=== PATIENT | female | born 1945 | race Hispanic/Latino ===

== ENCOUNTER → 2018-08-16 | Outpatient (CLI) | payer MEDICARE, OTHER | END | disposition home or self-care (01) | LOC: RAH 11:27 | PROVIDERS: ATTEND Family Medicine | DX: R91.8 Other nonspecific abnormal finding of lung field (principal); R05 Cough; I70.0 Atherosclerosis of aorta; M47.814 Spondylosis without myelopathy or radiculopathy, thoracic region | CPT/HCPCS: 71045 ==

== ENCOUNTER → 2019-04-19 | Outpatient (CLI) | payer OTHER | END | disposition home or self-care (01) | LOC: RAH 08:43 | PROVIDERS: ATTEND Internal Medicine Cardiovascular Disease | DX: Z13.6 Encounter for screening for cardiovascular disorders (principal) | CPT/HCPCS: 75571 ==

== ENCOUNTER 2021-01-16 16:28 | Inpatient (IN) | payer MEDICARE, OTHER ==
[~2021-01-16] VITALS: Ht 162.6 cm; Wt 70.9 kg
[~2021-01-16 16:28] MED LIST: ETOMIDATE 20MG VIAL IVP ONE; ROCURONIUM BROMIDE 10MG/1ML 5ML VL IV ONE
[2021-01-16 17:02] LABS: ABG BASE EXCESS 0.4 mmol/L (-2.0-3.0); ABG HCO3 23.1 mmol/L (21.0-28.0); ABG PCO2 32 mmHg (32-45)
[2021-01-16] MEDS ORDERED: ACETAMINOPHEN 325 MG TAB PO ONE (18:30)
[2021-01-16] MEDS ORDERED: AZITHROMYCIN 500MG VIAL IVPB ONE (18:30)
[2021-01-16] MEDS ORDERED: 0.9% NACL 250ML IVPB ONE (18:30)
[2021-01-16 18:47] LABS: BASOPHILS % (AUTO) 0.2 % (0.0-5.0); LYMPHOCYTES % (AUTO) 4.1 % (21.0-51.0); MEAN CORPUSCULAR HEMOGLOBIN 31.8 pg (27.0-33.0); MEAN CORPUSCULAR HGB CONC 34.3 g/dL (32.0-36.0); MEAN CORPUSCULAR VOLUME 92.7 fL (79-99); MONOCYTES % (AUTO) 5.4 % (3.0-13.0); NEUTROPHILS % (AUTO) 89.8 % (40.0-77.0); PLATELET COUNT (AUTO) 196 K/uL (130-400); RED BLOOD CELL COUNT(AUTO) 3.99 MIL/uL (4.00-5.50); WHITE BLOOD COUNT (AUTO) 6.3 K/uL (4.8-10.8)
[2021-01-16 18:56] LABS: CREATININE 1.1 mg/dL (0.5-1.5); POTASSIUM 4.9 mmol/L (3.5-5.1)
[2021-01-16 19:07] LABS: ALBUMIN 3.2 g/dL (3.5-5.0); BILIRUBIN,TOTAL 0.5 mg/dL (0.2-1.0); TOTAL PROTEIN, SERUM 7.5 g/dL (6.0-8.3)
[2021-01-16 19:09] LABS: B-TYPE NATRIURETIC PEPTIDE 27 pg/mL (0-100)
[2021-01-16] MEDS ORDERED: ALBUTEROL INHALER 90MCG/INH IH PRN (19:30)
[2021-01-16] MEDS ORDERED: ACETAMINOPHEN 650 MG SUPPOSITORY RC PRN (19:30)
[2021-01-16] MEDS ORDERED: DOXYCYCLINE 100MG+NS 250ML IV SCH (19:30)
[2021-01-16] MEDS ORDERED: CLONIDINE HCL 0.1 MG TABLET PO PRN (19:30)
[2021-01-16] MEDS: DEXAMETHASONE SOD PHOSPHATE 4 MG/ML 1ML VIAL IVP SCH (19:30)
[2021-01-16] MEDS ORDERED: ACETAMINOPHEN 325 MG TAB PO PRN (19:30)
[2021-01-16] MEDS ORDERED: ONDANSETRON 4MG INJ IVP PRN (19:30)
[2021-01-16] MEDS ORDERED: CEFTRIAXONE 1G VIAL IVP SCH (19:30)
[2021-01-16] MEDS ORDERED: ERGOCALCIFEROL (VITAMIN D2) 50,000 UNIT CAPSULE PO ONE (19:30)
[2021-01-16] MEDS ORDERED: AZITHROMYCIN 500MG+NS 250ML 250 ML IV ONE (19:36)
[2021-01-16] MEDS ORDERED: ERGOCALCIFEROL (VITAMIN D2) 50,000 UNIT CAPSULE ONE (21:27)
[2021-01-16] MEDS: ACETYLCYSTEINE 600 MG CAPSULE PO SCH (21:43)
[2021-01-17] VITALS: BP 131/64
[2021-01-17 04:00] VITALS: BP 105/55
[2021-01-17 04:18] LABS: LYMPHOCYTES % (AUTO) 7.6 % (21.0-51.0); MEAN CORPUSCULAR HEMOGLOBIN 31.9 pg (27.0-33.0); MEAN CORPUSCULAR VOLUME 93.8 fL (79-99); MONOCYTES % (AUTO) 4.3 % (3.0-13.0); NEUTROPHILS % (AUTO) 87.6 % (40.0-77.0); PLATELET COUNT (AUTO) 181 K/uL (130-400); RED BLOOD CELL COUNT(AUTO) 3.73 MIL/uL (4.00-5.50)
[2021-01-17 04:35] LABS: B-TYPE NATRIURETIC PEPTIDE 30 pg/mL (0-100)
[2021-01-17 04:41] LABS: CREATININE 0.9 mg/dL (0.5-1.5); POTASSIUM 4.6 mmol/L (3.5-5.1)
[2021-01-17 04:52] LABS: ALBUMIN 2.9 g/dL (3.5-5.0); BILIRUBIN,TOTAL 0.4 mg/dL (0.2-1.0); CRP QUANTITATIVE 35.9 mg/L (0.00-9.0)
[2021-01-17] MEDS ORDERED: PHARMACY COMMUNICATION**REMDESIVIR MISC SCH (07:30)
[2021-01-17 07:33] VITALS: BP 100/55
[2021-01-17] MEDS ORDERED: DOXYCYCLINE 100MG+NS 250ML IV SCH (08:00)
[2021-01-17] MEDS: DOXYCYCLINE 100MG+NS 250ML 250 ML IV SCH ×2 (08:25→19:42)
[2021-01-17] MEDS ORDERED: IOHEXOL-350 75 ML VIAL IV ONE (09:05)
[2021-01-17 09:20] LABS: APPEARANCE,URINE Clear (CLEAR); BILIRUBIN,URINE Negative (NEGATIVE); COLOR,URINE Dark Yellow (YELLOW); GLUCOSE, URINE (UA) Negative (NEGATIVE); KETONES,URINE Negative (NEGATIVE); LEUKOCYTE ESTERASE ,URINE Trace (NEGATIVE); NITRATE,URINE Negative (NEGATIVE); OCCULT BLOOD,URINE Negative (NEGATIVE); PROTEIN,URINE POS 1+ mg/dL (NEGATIVE)
[2021-01-17 09:25] LABS: RBC,URINE 0-1 /HPF (0-1)
[2021-01-17 09:26] LABS: BACTERIA,URINE Few /HPF (None Seen); MUCUS,URINE Rare LPF (None Seen); SQUAMOUS EPITHELIAL CELL,UR Rare /HPF (0-2)
[2021-01-17] MEDS ORDERED: COMPOUND IV REFRIGERATED 1 EACH IVSOLN MISC PRN (10:00)
[2021-01-17] MEDS ORDERED: REMDESIVIR (EUA) 520 200 MG in 0.9% NACL 250ML 250 ML IV SCH (10:00)
[2021-01-17] MEDS: ENOXAPARIN SODIUM 40 MG/0.4 ML SYRINGE SQ SCH (10:28)
[2021-01-17] MEDS: PANTOPRAZOLE 40 MG TAB DR PO SCH (10:29)
[2021-01-17] MEDS: ASPIRIN 81MG CHEW TAB PO SCH (10:29)
[2021-01-17] MEDS: ACETYLCYSTEINE 600 MG CAPSULE PO SCH ×2 (10:29→19:42)
[2021-01-17] MEDS: ZINC SULFATE 220 CAPSULE PO SCH (10:29)
[2021-01-17] MEDS: ASCORBIC ACID 500 MG TAB PO SCH (10:29)
[2021-01-17] MEDS: CEFTRIAXONE 1G VIAL IVP SCH ×2 (10:29→19:42)
[2021-01-17 11:32] VITALS: BP 130/71
[2021-01-17] MEDS ORDERED: LISI10TA24 PO (14:35)
[2021-01-17] MEDS ORDERED: LEVO25CA4 PO (14:35)
[2021-01-17] MEDS ORDERED: LIOT5TAB11 PO (14:35)
[2021-01-17 15:15] VITALS: BP 120/60
[2021-01-17] MEDS ORDERED: BENZONATATE 100 MG CAPSULE PO PRN (16:30)
[2021-01-17] MEDS: DEXAMETHASONE SOD PHOSPHATE 4 MG/ML 1ML VIAL IVP SCH (19:42)
[2021-01-17 19:55] VITALS: BP 122/59
[2021-01-18] VITALS (7 sets, daily range): BP systolic 101–122; BP diastolic 42–58
[2021-01-18] MEDS: REMDESIVIR LABS MISC SCH (05:08)
[2021-01-18 05:14] LABS: HEMATOCRIT 35.3 % (36-48); MEAN CORPUSCULAR HEMOGLOBIN 31.3 pg (27.0-33.0); MEAN CORPUSCULAR HGB CONC 33.7 g/dL (32.0-36.0); MEAN CORPUSCULAR VOLUME 92.9 fL (79-99); MONOCYTES % (AUTO) 3.3 % (3.0-13.0); NEUTROPHILS % (AUTO) 92.3 % (40.0-77.0); PLATELET COUNT (AUTO) 200 K/uL (130-400); RED CELL DISTRIBUTION WIDTH 12.1 % (11.0-15.5); WHITE BLOOD COUNT (AUTO) 8.5 K/uL (4.8-10.8)
[2021-01-18 05:36] LABS: ALBUMIN 2.7 g/dL (3.5-5.0); BILIRUBIN,TOTAL 0.4 mg/dL (0.2-1.0); CRP QUANTITATIVE 31.1 mg/L (0.00-9.0); POTASSIUM 4.5 mmol/L (3.5-5.1); TOTAL PROTEIN, SERUM 6.7 g/dL (6.0-8.3)
[2021-01-18] MEDS: ASCORBIC ACID 500 MG TAB PO SCH (09:06)
[2021-01-18] MEDS: CEFTRIAXONE 1G VIAL IVP SCH ×2 (09:06→20:18)
[2021-01-18] MEDS: ASPIRIN 81MG CHEW TAB PO SCH (09:06)
[2021-01-18] MEDS: ZINC SULFATE 220 CAPSULE PO SCH (09:06)
[2021-01-18] MEDS: PANTOPRAZOLE 40 MG TAB DR PO SCH (09:06)
[2021-01-18] MEDS: ACETYLCYSTEINE 600 MG CAPSULE PO SCH ×2 (09:06→20:18)
[2021-01-18] MEDS: DOXYCYCLINE 100MG+NS 250ML 250 ML IV SCH ×2 (09:06→20:18)
[2021-01-18] MEDS: ENOXAPARIN SODIUM 40 MG/0.4 ML SYRINGE SQ SCH (09:07)
[2021-01-18] MEDS ORDERED: REMDESIVIR (EUA) 520 100 MG in 0.9% NACL 250ML 250 ML IV SCH (13:00)
[2021-01-18] MEDS ORDERED: [UNRECOGNIZED DRUG - OTHER] MISC SCH (16:00)
[2021-01-18] MEDS ORDERED: TOCILIZUMAB 200MG VIAL 600 MG in 0.9%NACL 100ML 100 ML IV SCH (16:30)
[2021-01-18] MEDS: DEXAMETHASONE SOD PHOSPHATE 4 MG/ML 1ML VIAL IVP SCH (17:47)
[2021-01-19 03:59] VITALS: BP 110/43
[2021-01-19 04:14] LABS: ABG BASE EXCESS -3.2 mmol/L (-2.0-3.0); ABG HCO3 20.9 mmol/L (21.0-28.0); ABG OXYGEN SATURATION 93.6 % (95.0-99.0); ABG PCO2 35 mmHg (32-45)
[2021-01-19 05:31] LABS: BASOPHILS % (AUTO) 0.1 % (0.0-5.0); HEMATOCRIT 35.9 % (36-48); LYMPHOCYTES % (AUTO) 2.9 % (21.0-51.0); MEAN CORPUSCULAR HGB CONC 33.7 g/dL (32.0-36.0); MEAN CORPUSCULAR VOLUME 92.1 fL (79-99); NEUTROPHILS % (AUTO) 94.4 % (40.0-77.0); PLATELET COUNT (AUTO) 241 K/uL (130-400); RED CELL DISTRIBUTION WIDTH 12.1 % (11.0-15.5); WHITE BLOOD COUNT (AUTO) 12.7 K/uL (4.8-10.8)
[2021-01-19] MEDS: REMDESIVIR LABS MISC SCH (06:00)
[2021-01-19 06:02] LABS: ALBUMIN 2.5 g/dL (3.5-5.0); BILIRUBIN,TOTAL 0.4 mg/dL (0.2-1.0); CREATININE 0.9 mg/dL (0.5-1.5); CRP QUANTITATIVE 45.6 mg/L (0.00-9.0); POTASSIUM 4.4 mmol/L (3.5-5.1); TOTAL PROTEIN, SERUM 6.8 g/dL (6.0-8.3)
[2021-01-19 07:00] VITALS: BP 115/39
[2021-01-19] MEDS: ZINC SULFATE 220 CAPSULE PO SCH (09:52)
[2021-01-19] MEDS: ASCORBIC ACID 500 MG TAB PO SCH (09:53)
[2021-01-19] MEDS: ACETYLCYSTEINE 600 MG CAPSULE PO SCH ×2 (09:53→20:00)
[2021-01-19] MEDS: ASPIRIN 81MG CHEW TAB PO SCH (09:53)
[2021-01-19] MEDS: PANTOPRAZOLE 40 MG TAB DR PO SCH (09:53)
[2021-01-19] MEDS: ENOXAPARIN SODIUM 40 MG/0.4 ML SYRINGE SQ SCH (09:54)
[2021-01-19] MEDS: DOXYCYCLINE 100MG+NS 250ML 250 ML IV SCH ×2 (09:54→19:58)
[2021-01-19] MEDS: CEFTRIAXONE 1G VIAL IVP SCH ×2 (09:56→19:58)
[2021-01-19 11:00] VITALS: BP 125/65
[2021-01-19] MEDS: SOLU-MEDROL 125MG VIAL IVP SCH ×2 (11:18→18:31)
[2021-01-19 16:00] VITALS: BP 119/55
[2021-01-19 19:52] VITALS: BP 122/53
[2021-01-19] MEDS ORDERED: 0.9% NACL 250ML 250 ML ONE (19:54)
[2021-01-19 23:20] VITALS: BP 122/53
[2021-01-20] MEDS: SOLU-MEDROL 125MG VIAL IVP SCH ×3 (02:16→18:01)
[2021-01-20 04:04] VITALS: BP 125/61
[2021-01-20 04:41] LABS: HEMATOCRIT 38.3 % (36-48); MEAN CORPUSCULAR HEMOGLOBIN 31.6 pg (27.0-33.0); MEAN CORPUSCULAR HGB CONC 34.2 g/dL (32.0-36.0); MEAN CORPUSCULAR VOLUME 92.3 fL (79-99); RED BLOOD CELL COUNT(AUTO) 4.15 MIL/uL (4.00-5.50); RED CELL DISTRIBUTION WIDTH 12.1 % (11.0-15.5); WHITE BLOOD COUNT (AUTO) 14.1 K/uL (4.8-10.8)
[2021-01-20 05:00] LABS: ALBUMIN 2.6 g/dL (3.5-5.0); BILIRUBIN,TOTAL 0.4 mg/dL (0.2-1.0); CREATININE 0.9 mg/dL (0.5-1.5); CRP QUANTITATIVE 25.1 mg/L (0.00-9.0); TOTAL PROTEIN, SERUM 6.9 g/dL (6.0-8.3)
[2021-01-20 07:00] VITALS: BP 127/45
[2021-01-20] MEDS: ENOXAPARIN SODIUM 40 MG/0.4 ML SYRINGE SQ SCH (08:13)
[2021-01-20] MEDS: ACETYLCYSTEINE 600 MG CAPSULE PO SCH ×2 (08:13→20:44)
[2021-01-20] MEDS: ASCORBIC ACID 500 MG TAB PO SCH (08:13)
[2021-01-20] MEDS: ZINC SULFATE 220 CAPSULE PO SCH (08:13)
[2021-01-20] MEDS: ASPIRIN 81MG CHEW TAB PO SCH (08:14)
[2021-01-20] MEDS: DOXYCYCLINE 100MG+NS 250ML 250 ML IV SCH ×2 (08:14→20:44)
[2021-01-20] MEDS: PANTOPRAZOLE 40 MG TAB DR PO SCH (08:14)
[2021-01-20] MEDS: CEFTRIAXONE 1G VIAL IVP SCH ×2 (08:14→20:44)
[2021-01-20] MEDS ORDERED: DIAZEPAM 5 MG TABLET PO PRN (10:30)
[2021-01-20 11:00] VITALS: BP 130/65
[2021-01-20] MEDS: THIAMINE HCL 100 MG TABLET PO SCH (13:10)
[2021-01-20] MEDS: ALBUTEROL INHALER 90MCG/INH IH SCH ×4 (13:11→23:43)
[2021-01-20 15:00] VITALS: BP 131/51
[2021-01-20 19:43] VITALS: BP 133/54
[2021-01-20 23:11] VITALS: BP 126/48
[2021-01-21] MEDS: SOLU-MEDROL 125MG VIAL IVP SCH ×2 (02:44→09:48)
[2021-01-21 03:16] VITALS: BP 122/57
[2021-01-21] MEDS: ALBUTEROL INHALER 90MCG/INH IH SCH ×6 (03:46→23:30)
[2021-01-21 04:34] LABS: HEMATOCRIT 37.4 % (36-48); MEAN CORPUSCULAR HEMOGLOBIN 31.5 pg (27.0-33.0); MEAN CORPUSCULAR HGB CONC 34.2 g/dL (32.0-36.0); MEAN CORPUSCULAR VOLUME 92.1 fL (79-99); RED BLOOD CELL COUNT(AUTO) 4.06 MIL/uL (4.00-5.50); RED CELL DISTRIBUTION WIDTH 11.9 % (11.0-15.5); WHITE BLOOD COUNT (AUTO) 13.8 K/uL (4.8-10.8)
[2021-01-21 04:55] LABS: CREATININE 0.9 mg/dL (0.5-1.5); CRP QUANTITATIVE 9.6 mg/L (0.00-9.0); POTASSIUM 4.1 mmol/L (3.5-5.1)
[2021-01-21 07:44] LABS: ABG BASE EXCESS -4.6 mmol/L (-2.0-3.0); ABG HCO3 18.9 mmol/L (21.0-28.0); ABG OXYGEN SATURATION 88.2 % (95.0-99.0); ABG PCO2 30 mmHg (32-45)
[2021-01-21] MEDS ORDERED: ENOXAPARIN SODIUM 0.5 MG/KG EACH SQ SCH (09:00)
[2021-01-21] MEDS: ASPIRIN 81MG CHEW TAB PO SCH (09:23)
[2021-01-21] MEDS: THIAMINE HCL 100 MG TABLET PO SCH (09:23)
[2021-01-21] MEDS: ZINC SULFATE 220 CAPSULE PO SCH (09:23)
[2021-01-21] MEDS: ACETYLCYSTEINE 600 MG CAPSULE PO SCH ×2 (09:23→20:31)
[2021-01-21] MEDS: ASCORBIC ACID 500 MG TAB PO SCH (09:23)
[2021-01-21] MEDS: PANTOPRAZOLE 40 MG TAB DR PO SCH (09:23)
[2021-01-21] MEDS: DOXYCYCLINE 100MG+NS 250ML 250 ML IV SCH ×2 (09:24→20:32)
[2021-01-21] MEDS: CEFTRIAXONE 1G VIAL IVP SCH ×2 (09:24→20:31)
[2021-01-21] MEDS: ENOXAPARIN SODIUM 40 MG/0.4 ML SYRINGE SQ SCH ×2 (09:25→20:31)
[2021-01-21 10:37] VITALS: BP 130/60
[2021-01-21 12:00] VITALS: BP 139/63
[2021-01-21 16:00] VITALS: BP 124/59
[2021-01-21] MEDS ORDERED: SOLU-MEDROL 125MG VIAL IVP SCH (21:00)
[2021-01-21 21:05] VITALS: BP 113/55
[2021-01-22 00:06] VITALS: BP 123/58
[2021-01-22] MEDS: ALBUTEROL INHALER 90MCG/INH IH SCH ×6 (03:30→23:30)
[2021-01-22 04:12] VITALS: BP 119/76
[2021-01-22 05:42] LABS: HEMATOCRIT 36.8 % (36-48); MEAN CORPUSCULAR HEMOGLOBIN 31.3 pg (27.0-33.0); MEAN CORPUSCULAR HGB CONC 33.7 g/dL (32.0-36.0); MEAN CORPUSCULAR VOLUME 92.9 fL (79-99); NUCLEATED RED BLOOD CELLS 0.1 % (0.0-0.19); RED BLOOD CELL COUNT(AUTO) 3.96 MIL/uL (4.00-5.50); RED CELL DISTRIBUTION WIDTH 12.1 % (11.0-15.5); WHITE BLOOD COUNT (AUTO) 13.7 K/uL (4.8-10.8)
[2021-01-22 06:02] LABS: ALANINE AMINOTRANSFERASE 66 U/L (12-78); ALBUMIN 2.5 g/dL (3.5-5.0); ASPARTATE AMINOTRANSFERASE 47 U/L (10-37); BILIRUBIN,TOTAL 0.4 mg/dL (0.2-1.0); CARBON DIOXIDE 22 mmol/L (21-32); CHLORIDE 107 mmol/L (101-111); CREATININE 0.9 mg/dL (0.5-1.5); GLOMERULAR FILTR. RATE CALC 65 mL/min (>60); GLUCOSE,RANDOM 111 mg/dL (70-105); POTASSIUM 4.6 mmol/L (3.5-5.1); SODIUM SERUM 138 mmol/L (136-145); TOTAL PROTEIN, SERUM 6.1 g/dL (6.0-8.3); UREA NITROGEN, BLOOD 39 mg/dL (7-18)
[2021-01-22 06:03] LABS: CRP QUANTITATIVE < 2.00 mg/L (0.00-9.0)
[2021-01-22 08:00] VITALS: BP 134/58
[2021-01-22] MEDS: DOXYCYCLINE 100MG+NS 250ML 250 ML IV SCH ×2 (09:13→19:58)
[2021-01-22] MEDS: ENOXAPARIN SODIUM 40 MG/0.4 ML SYRINGE SQ SCH ×2 (09:13→20:04)
[2021-01-22] MEDS: SOLU-MEDROL 125MG VIAL IVP SCH ×2 (09:18→20:01)
[2021-01-22] MEDS: ACETYLCYSTEINE 600 MG CAPSULE PO SCH ×2 (09:19→20:02)
[2021-01-22] MEDS: ASPIRIN 81MG CHEW TAB PO SCH (09:19)
[2021-01-22] MEDS: ZINC SULFATE 220 CAPSULE PO SCH (09:19)
[2021-01-22] MEDS: ASCORBIC ACID 500 MG TAB PO SCH (09:19)
[2021-01-22] MEDS: CEFTRIAXONE 1G VIAL IVP SCH ×2 (09:19→19:58)
[2021-01-22] MEDS: THIAMINE HCL 100 MG TABLET PO SCH (09:20)
[2021-01-22] MEDS: PANTOPRAZOLE 40 MG TAB DR PO SCH (09:20)
[2021-01-22 16:00] VITALS: BP 120/56
[2021-01-22] MEDS: ZINC OXIDE OINT 60GM TUBE TP SCH (20:03)
[2021-01-22 20:25] VITALS: BP 129/68
[2021-01-23] VITALS (7 sets, daily range): BP systolic 105–125; BP diastolic 42–67
[2021-01-23] MEDS: ALBUTEROL INHALER 90MCG/INH IH SCH ×3 (04:06→23:42)
[2021-01-23 04:44] LABS: ABG BASE EXCESS -1.2 mmol/L (-2.0-3.0); ABG HCO3 22.2 mmol/L (21.0-28.0); ABG OXYGEN SATURATION 87.1 % (95.0-99.0); ABG PCO2 33 mmHg (32-45)
[2021-01-23 04:55] LABS: MEAN CORPUSCULAR HEMOGLOBIN 30.9 pg (27.0-33.0); MEAN CORPUSCULAR HGB CONC 34.5 g/dL (32.0-36.0); MEAN CORPUSCULAR VOLUME 89.6 fL (79-99); NUCLEATED RED BLOOD CELLS 0.2 % (0.0-0.19); RED BLOOD CELL COUNT(AUTO) 4.24 MIL/uL (4.00-5.50); RED CELL DISTRIBUTION WIDTH 11.9 % (11.0-15.5); WHITE BLOOD COUNT (AUTO) 14.1 K/uL (4.8-10.8)
[2021-01-23 05:08] LABS: CARBON DIOXIDE 24 mmol/L (21-32); CHLORIDE 105 mmol/L (101-111); CREATININE 0.9 mg/dL (0.5-1.5); GLOMERULAR FILTR. RATE CALC 65 mL/min (>60); GLUCOSE,RANDOM 135 mg/dL (70-105); POTASSIUM 4.5 mmol/L (3.5-5.1); SODIUM SERUM 136 mmol/L (136-145); UREA NITROGEN, BLOOD 41 mg/dL (7-18)
[2021-01-23 05:46] LABS: CRP QUANTITATIVE < 2.00 mg/L (0.00-9.0)
[2021-01-23] MEDS: ASCORBIC ACID 500 MG TAB PO SCH (09:00)
[2021-01-23] MEDS: SOLU-MEDROL 125MG VIAL IVP SCH ×2 (10:18→20:30)
[2021-01-23] MEDS: FLUCONAZOLE 400 MG/NS 200 ML 200 ML IV SCH (10:19)
[2021-01-23] MEDS: ZINC SULFATE 220 CAPSULE PO SCH (10:27)
[2021-01-23] MEDS: THIAMINE HCL 100 MG TABLET PO SCH ×2 (10:27→20:31)
[2021-01-23] MEDS: PANTOPRAZOLE 40 MG TAB DR PO SCH (10:33)
[2021-01-23] MEDS: ACETYLCYSTEINE 600 MG CAPSULE PO SCH ×2 (10:35→20:30)
[2021-01-23] MEDS: ASPIRIN 81MG CHEW TAB PO SCH (10:35)
[2021-01-23] MEDS ORDERED: PHARMACY COMMUNICATION MISC SCH (12:00)
[2021-01-23] MEDS: PHARMACY COMMUNICATION MISC SCH (19:15)
[2021-01-23] MEDS: ZINC OXIDE OINT 60GM TUBE TP SCH (20:29)
[2021-01-23] MEDS: CEFTRIAXONE 1G VIAL IVP SCH (20:30)
[2021-01-23] MEDS: DRONABINOL 2.5 MG CAP PO SCH (20:30)
[2021-01-23] MEDS: DOXYCYCLINE 100MG+NS 250ML 250 ML IV SCH (20:30)
[2021-01-23] MEDS: ENOXAPARIN SODIUM 40 MG/0.4 ML SYRINGE SQ SCH (20:32)
[2021-01-23] MEDS ORDERED: BENZONATATE 100 MG CAPSULE PO ONE (23:46)
[2021-01-24] VITALS (7 sets, daily range): BP systolic 117–139; BP diastolic 54–69
[2021-01-24 02:15] LABS: ABG BASE EXCESS -2.9 mmol/L (-2.0-3.0); ABG HCO3 20.7 mmol/L (21.0-28.0); ABG PCO2 33 mmHg (32-45)
[2021-01-24] MEDS: ALBUTEROL INHALER 90MCG/INH IH SCH ×6 (02:34→23:14)
[2021-01-24] MEDS ORDERED: SODIUM BICARB 50MEQ 50ML VIAL 50 ML ONE ×2 (02:54→02:58)
[2021-01-24] MEDS ORDERED: SODIUM BICARB 8.4% 50ML SYRINGE IVP ONE (03:00)
[2021-01-24] MEDS: PHARMACY COMMUNICATION MISC SCH ×3 (03:03→20:00)
[2021-01-24] MEDS: DOXYCYCLINE 100MG+NS 250ML 250 ML IV SCH (08:42)
[2021-01-24] MEDS: BENZONATATE 100 MG CAPSULE PO SCH ×4 (08:42→23:16)
[2021-01-24] MEDS: CEFTRIAXONE 1G VIAL IVP SCH (08:42)
[2021-01-24] MEDS: FLUCONAZOLE 400 MG/NS 200 ML 200 ML IV SCH (08:49)
[2021-01-24] MEDS: ACETYLCYSTEINE 600 MG CAPSULE PO SCH ×2 (08:50→21:33)
[2021-01-24] MEDS: SOLU-MEDROL 125MG VIAL IVP SCH ×4 (08:50→21:33)
[2021-01-24] MEDS: PANTOPRAZOLE 40 MG TAB DR PO SCH (08:50)
[2021-01-24] MEDS: ASPIRIN 81MG CHEW TAB PO SCH (08:50)
[2021-01-24] MEDS: DRONABINOL 2.5 MG CAP PO SCH ×2 (08:50→21:33)
[2021-01-24] MEDS: ENOXAPARIN SODIUM 40 MG/0.4 ML SYRINGE SQ SCH ×2 (08:51→21:34)
[2021-01-24] MEDS: THIAMINE HCL 100 MG TABLET PO SCH ×2 (08:51→21:33)
[2021-01-24] MEDS: ZINC SULFATE 220 CAPSULE PO SCH (08:51)
[2021-01-24] MEDS: ASCORBIC ACID 500 MG TAB PO SCH (08:51)
[2021-01-24] MEDS: ZINC OXIDE OINT 60GM TUBE TP SCH ×2 (08:52→21:34)
[2021-01-24] MEDS: ERGOCALCIFEROL (VITAMIN D2) 50,000 UNIT CAPSULE PO SCH (08:55)
[2021-01-24] MEDS ORDERED: COMPOUND IV REFRIGERATED 1 EACH IVSOLN MISC PRN (15:00)
[2021-01-24 15:37] LABS: HEMATOCRIT 38.8 % (36-48); MEAN CORPUSCULAR HEMOGLOBIN 32.3 pg (27.0-33.0); MEAN CORPUSCULAR HGB CONC 34.5 g/dL (32.0-36.0); MEAN CORPUSCULAR VOLUME 93.5 fL (79-99); RED BLOOD CELL COUNT(AUTO) 4.15 MIL/uL (4.00-5.50); RED CELL DISTRIBUTION WIDTH 12.3 % (11.0-15.5); WHITE BLOOD COUNT (AUTO) 14.5 K/uL (4.8-10.8)
[2021-01-24 15:56] LABS: ALBUMIN 2.6 g/dL (3.5-5.0); BILIRUBIN,TOTAL 0.3 mg/dL (0.2-1.0); CREATININE 0.8 mg/dL (0.5-1.5); POTASSIUM 4.6 mmol/L (3.5-5.1); TOTAL PROTEIN, SERUM 6.1 g/dL (6.0-8.3)
[2021-01-24] MEDS ORDERED: VANCOMYCIN 1G VIAL IVPB SCH (16:00)
[2021-01-24] MEDS ORDERED: 0.9% NACL 250ML IVPB SCH (16:00)
[2021-01-24] MEDS ORDERED: DIAZEPAM 5 MG TABLET PO PRN (16:00)
[2021-01-24] MEDS ORDERED: 0.9% NACL 250ML 250 ML IV SCH (16:00)
[2021-01-24] MEDS ORDERED: ZOSYN 3.375GM+NS 50ML 3.38 GM in 0.9%NACL 50ML 50 ML IV SCH (16:00)
[2021-01-24] MEDS ORDERED: VANCOMYCIN PROTOCOL PER PHARMACY IV SCH (16:00)
[2021-01-24] MEDS ORDERED: VANCOMYCIN KIT 1 GM/250 ML IV.KIT IV SCH (16:00)
[2021-01-24] MEDS: ASCORBIC ACID IV SCH (18:45)
[2021-01-24] MEDS: [UNRECOGNIZED DRUG - OTHER] IV SCH (18:45)
[2021-01-24] MEDS ORDERED: 0.9%NACL 50ML 50 ML IV ONE (20:41)
[2021-01-24] MEDS: ZOSYN 3.375GM+NS 50ML 50 ML IV SCH (20:43)
[2021-01-24] MEDS: DIAZEPAM 5 MG TABLET PO SCH (21:33)
[2021-01-25] VITALS (24 sets, daily range): BP systolic 119–154; BP diastolic 46–94
[2021-01-25] MEDS: ASCORBIC ACID IV SCH ×4 (00:47→18:25)
[2021-01-25] MEDS: [UNRECOGNIZED DRUG - OTHER] IV SCH ×4 (00:47→18:25)
[2021-01-25] MEDS: ALBUTEROL INHALER 90MCG/INH IH SCH ×6 (03:03→23:30)
[2021-01-25] MEDS: PHARMACY COMMUNICATION MISC SCH ×2 (03:03→20:00)
[2021-01-25] MEDS: DIAZEPAM 5 MG TABLET PO SCH ×5 (04:00→21:23)
[2021-01-25] MEDS ORDERED: 0.9%NACL 50ML 50 ML IV ONE ×2 (04:03→21:08)
[2021-01-25] MEDS: SOLU-MEDROL 125MG VIAL IVP SCH ×4 (04:10→21:23)
[2021-01-25 04:35] LABS: BASOPHILS % (AUTO) 0.1 % (0.0-5.0); HEMATOCRIT 37.5 % (36-48); LYMPHOCYTES % (AUTO) 2.6 % (21.0-51.0); MEAN CORPUSCULAR HEMOGLOBIN 31.1 pg (27.0-33.0); MEAN CORPUSCULAR HGB CONC 33.9 g/dL (32.0-36.0); MEAN CORPUSCULAR VOLUME 91.7 fL (79-99); MONOCYTES % (AUTO) 0.3 % (3.0-13.0); NEUTROPHILS % (AUTO) 94.7 % (40.0-77.0); PLATELET COUNT (AUTO) 340 K/uL (130-400); RED BLOOD CELL COUNT(AUTO) 4.09 MIL/uL (4.00-5.50); WHITE BLOOD COUNT (AUTO) 15.5 K/uL (4.8-10.8)
[2021-01-25 05:00] LABS: CREATININE 0.8 mg/dL (0.5-1.5); POTASSIUM 4.7 mmol/L (3.5-5.1)
[2021-01-25] MEDS: ZOSYN 3.375GM+NS 50ML 50 ML IV SCH ×3 (05:44→21:12)
[2021-01-25] MEDS: 0.9%NACL 100ML 100 ML IV SCH ×2 (09:42→21:14)
[2021-01-25] MEDS: VANCOMYCIN 500MG+NS 100ML IVPB IV SCH ×2 (09:42→21:14)
[2021-01-25] MEDS: FLUCONAZOLE 400 MG/NS 200 ML 200 ML IV SCH (09:42)
[2021-01-25] MEDS: BENZONATATE 100 MG CAPSULE PO SCH ×2 (09:42→15:35)
[2021-01-25] MEDS: ASCORBIC ACID 500 MG TAB PO SCH (09:43)
[2021-01-25] MEDS: PANTOPRAZOLE 40 MG TAB DR PO SCH (09:43)
[2021-01-25] MEDS: ZINC SULFATE 220 CAPSULE PO SCH (09:43)
[2021-01-25] MEDS: ASPIRIN 81MG CHEW TAB PO SCH (09:43)
[2021-01-25] MEDS: DRONABINOL 2.5 MG CAP PO SCH ×2 (09:43→21:13)
[2021-01-25] MEDS: THIAMINE HCL 100 MG TABLET PO SCH ×2 (09:43→21:13)
[2021-01-25] MEDS: ENOXAPARIN SODIUM 40 MG/0.4 ML SYRINGE SQ SCH ×2 (09:44→21:12)
[2021-01-25] MEDS: ZINC OXIDE OINT 60GM TUBE TP SCH ×2 (09:44→21:12)
[2021-01-25] MEDS: ACETYLCYSTEINE 600 MG CAPSULE PO SCH ×2 (09:44→21:13)
[2021-01-26] VITALS (16 sets, daily range): BP systolic 119–148; BP diastolic 42–80
[2021-01-26] MEDS: BENZONATATE 100 MG CAPSULE PO SCH ×4 (00:12→23:39)
[2021-01-26] MEDS: [UNRECOGNIZED DRUG - OTHER] IV SCH ×5 (00:13→23:42)
[2021-01-26] MEDS: ASCORBIC ACID IV SCH ×5 (00:13→23:42)
[2021-01-26] MEDS: ALBUTEROL INHALER 90MCG/INH IH SCH ×5 (03:30→18:19)
[2021-01-26] MEDS: PHARMACY COMMUNICATION MISC SCH ×3 (04:00→20:00)
[2021-01-26] MEDS: DIAZEPAM 5 MG TABLET PO SCH ×4 (04:00→20:50)
[2021-01-26] MEDS ORDERED: 0.9%NACL 50ML 50 ML IV ONE (05:24)
[2021-01-26] MEDS: ZOSYN 3.375GM+NS 50ML 50 ML IV SCH ×3 (05:27→20:49)
[2021-01-26] MEDS: SOLU-MEDROL 125MG VIAL IVP SCH ×3 (05:27→17:36)
[2021-01-26 05:45] LABS: ALBUMIN 2.7 g/dL (3.5-5.0); BILIRUBIN,TOTAL 0.5 mg/dL (0.2-1.0); CREATININE 0.8 mg/dL (0.5-1.5); TOTAL PROTEIN, SERUM 6.3 g/dL (6.0-8.3)
[2021-01-26 06:56] LABS: HEMATOCRIT 39.9 % (36-48); MEAN CORPUSCULAR HEMOGLOBIN 31.2 pg (27.0-33.0); MEAN CORPUSCULAR HGB CONC 33.6 g/dL (32.0-36.0); MEAN CORPUSCULAR VOLUME 92.8 fL (79-99); RED BLOOD CELL COUNT(AUTO) 4.3 MIL/uL (4.00-5.50); RED CELL DISTRIBUTION WIDTH 12.3 % (11.0-15.5); WHITE BLOOD COUNT (AUTO) 20.2 K/uL (4.8-10.8)
[2021-01-26] MEDS: ACETYLCYSTEINE 600 MG CAPSULE PO SCH ×2 (07:55→20:49)
[2021-01-26] MEDS: ASCORBIC ACID 500 MG TAB PO SCH ×2 (07:57→08:53)
[2021-01-26] MEDS: VANCOMYCIN 500MG+NS 100ML IVPB IV SCH ×2 (08:49→20:49)
[2021-01-26] MEDS: ENOXAPARIN SODIUM 40 MG/0.4 ML SYRINGE SQ SCH ×2 (08:53→20:50)
[2021-01-26] MEDS: PANTOPRAZOLE 40 MG TAB DR PO SCH (08:54)
[2021-01-26] MEDS: THIAMINE HCL 100 MG TABLET PO SCH ×2 (08:54→20:49)
[2021-01-26] MEDS: FLUCONAZOLE 400 MG/NS 200 ML 200 ML IV SCH (08:55)
[2021-01-26] MEDS: DRONABINOL 2.5 MG CAP PO SCH ×2 (08:55→20:49)
[2021-01-26] MEDS: ASPIRIN 81MG CHEW TAB PO SCH (08:55)
[2021-01-26] MEDS: ZINC SULFATE 220 CAPSULE PO SCH (08:55)
[2021-01-26] MEDS: ZINC OXIDE OINT 60GM TUBE TP SCH ×2 (08:55→20:50)
[2021-01-26] MEDS: LIOTHYRONINE SODIUM 5 MCG PO SCH ×2 (10:22→21:00)
[2021-01-26] MEDS: LEVOTHYROXINE 25 MCG TABLET PO SCH (11:04)
[2021-01-26] MEDS ORDERED: COMPOUND IV REFRIGERATED 1 EACH IVSOLN MISC PRN (12:30)
[2021-01-26] MEDS ORDERED: VANCOMYCIN 1.25GM/NS 250ML IVPB SCH ×2 (14:00)
[2021-01-26 15:38] LABS: INR 1.11 (0.85-1.15)
[2021-01-26] MEDS: 0.9%NACL 100ML 100 ML IV SCH (20:49)
[2021-01-26] MEDS ORDERED: PHARMACY COMMUNICATION MISC SCH (22:00)
[2021-01-27] VITALS (22 sets, daily range): BP systolic 108–151; BP diastolic 39–80
[2021-01-27] MEDS: SOLU-MEDROL 125MG VIAL IVP SCH ×3 (01:45→17:26)
[2021-01-27] MEDS: DIAZEPAM 5 MG TABLET PO SCH ×4 (04:00→22:17)
[2021-01-27] MEDS: PHARMACY COMMUNICATION MISC SCH ×2 (04:00→11:19)
[2021-01-27 04:17] LABS: HEMATOCRIT 35.6 % (36-48); MEAN CORPUSCULAR HEMOGLOBIN 32.1 pg (27.0-33.0); MEAN CORPUSCULAR HGB CONC 33.7 g/dL (32.0-36.0); MEAN CORPUSCULAR VOLUME 95.2 fL (79-99); RED BLOOD CELL COUNT(AUTO) 3.74 MIL/uL (4.00-5.50); RED CELL DISTRIBUTION WIDTH 12.3 % (11.0-15.5); WHITE BLOOD COUNT (AUTO) 15.9 K/uL (4.8-10.8)
[2021-01-27 04:45] LABS: CREATININE 0.8 mg/dL (0.5-1.5); POTASSIUM 3.6 mmol/L (3.5-5.1); THYROID STIMULATING HORMONE 0.65 uIU/mL (0.36-3.74)
[2021-01-27] MEDS: [UNRECOGNIZED DRUG - OTHER] IV SCH ×3 (05:27→17:26)
[2021-01-27] MEDS: ZOSYN 3.375GM+NS 50ML 50 ML IV SCH ×3 (05:27→21:25)
[2021-01-27] MEDS: ASCORBIC ACID IV SCH ×3 (05:27→17:26)
[2021-01-27 06:40] LABS: ABG HCO3 29.1 mmol/L (21.0-28.0); ABG OXYGEN SATURATION 93.5 % (95.0-99.0); ABG PCO2 46 mmHg (32-45)
[2021-01-27] MEDS: ALBUTEROL INHALER 90MCG/INH IH SCH ×6 (07:00→23:30)
[2021-01-27] MEDS: ACETYLCYSTEINE 600 MG CAPSULE PO SCH (08:06)
[2021-01-27] MEDS: FLUCONAZOLE 400 MG/NS 200 ML 200 ML IV SCH (08:22)
[2021-01-27] MEDS: ENOXAPARIN SODIUM 40 MG/0.4 ML SYRINGE SQ SCH ×2 (08:23→21:23)
[2021-01-27] MEDS: ASPIRIN 81MG CHEW TAB PO SCH (08:25)
[2021-01-27] MEDS: PANTOPRAZOLE 40 MG TAB DR PO SCH (08:26)
[2021-01-27] MEDS: VANCOMYCIN 500MG+NS 100ML IVPB IV SCH ×2 (08:26→21:24)
[2021-01-27] MEDS: ASCORBIC ACID 500 MG TAB PO SCH (08:26)
[2021-01-27] MEDS: BENZONATATE 100 MG CAPSULE PO SCH ×2 (08:26→16:00)
[2021-01-27] MEDS: DRONABINOL 2.5 MG CAP PO SCH ×2 (08:26→21:25)
[2021-01-27] MEDS: THIAMINE HCL 100 MG TABLET PO SCH ×2 (08:26→21:25)
[2021-01-27] MEDS: LIOTHYRONINE SODIUM 5 MCG PO SCH ×2 (08:27→21:00)
[2021-01-27] MEDS: ZINC SULFATE 220 CAPSULE PO SCH (08:34)
[2021-01-27] MEDS: ZINC OXIDE OINT 60GM TUBE TP SCH ×2 (08:35→21:26)
[2021-01-27] MEDS: DOCUSATE SODIUM 100 MG CAP PO SCH ×2 (12:15→21:00)
[2021-01-27] MEDS: FUROSEMIDE 20MG VIAL IV SCH ×2 (12:15→23:22)
[2021-01-27] MEDS ORDERED: HONEY 1 APPL/ML TUBE TP SCH (21:00)
[2021-01-27] MEDS ORDERED: LIDOCAINE HCL-MPF 1% 2ML VIAL IV PRN (21:30)
[2021-01-27] MEDS: POTASSIUM CHLORIDE 10% ELIXIR 20 MEQ/15 ML UDCUP PO PRN (22:21)
[2021-01-27] MEDS: KCL 20 MEQ ERTAB PO PRN (22:21)
[2021-01-28] VITALS (24 sets, daily range): BP systolic 101–154; BP diastolic 47–88
[2021-01-28] MEDS: BENZONATATE 100 MG CAPSULE PO SCH ×3 (01:46→16:06)
[2021-01-28] MEDS: SOLU-MEDROL 125MG VIAL IVP SCH ×2 (01:46→14:56)
[2021-01-28] MEDS: ASCORBIC ACID IV SCH ×4 (01:46→17:29)
[2021-01-28] MEDS: [UNRECOGNIZED DRUG - OTHER] IV SCH ×4 (01:46→17:29)
[2021-01-28] MEDS: ALBUTEROL INHALER 90MCG/INH IH SCH ×4 (03:30→11:00)
[2021-01-28 04:13] LABS: HEMATOCRIT 36.6 % (36-48); MEAN CORPUSCULAR HEMOGLOBIN 31.9 pg (27.0-33.0); MEAN CORPUSCULAR HGB CONC 33.9 g/dL (32.0-36.0); MEAN CORPUSCULAR VOLUME 94.1 fL (79-99); RED BLOOD CELL COUNT(AUTO) 3.89 MIL/uL (4.00-5.50); RED CELL DISTRIBUTION WIDTH 12.7 % (11.0-15.5); WHITE BLOOD COUNT (AUTO) 13.7 K/uL (4.8-10.8)
[2021-01-28 04:37] LABS: ALANINE AMINOTRANSFERASE 79 U/L (12-78); ALBUMIN 2.7 g/dL (3.5-5.0); ASPARTATE AMINOTRANSFERASE 38 U/L (10-37); BILIRUBIN,TOTAL 0.5 mg/dL (0.2-1.0); CARBON DIOXIDE 33 mmol/L (21-32); CHLORIDE 107 mmol/L (101-111); CREATININE 0.9 mg/dL (0.5-1.5); GLOMERULAR FILTR. RATE CALC 65 mL/min (>60); GLUCOSE,RANDOM 211 mg/dL (70-105); POTASSIUM 3.6 mmol/L (3.5-5.1); SODIUM SERUM 149 mmol/L (136-145); UREA NITROGEN, BLOOD 55 mg/dL (7-18)
[2021-01-28 04:40] LABS: CRP QUANTITATIVE < 2.00 mg/L (0.00-9.0)
[2021-01-28] MEDS: DIAZEPAM 5 MG TABLET PO SCH ×4 (04:59→21:57)
[2021-01-28] MEDS: POTASSIUM CHLORIDE 10% ELIXIR 20 MEQ/15 ML UDCUP PO PRN ×2 (05:00→05:01)
[2021-01-28] MEDS: ZOSYN 3.375GM+NS 50ML 50 ML IV SCH ×3 (05:00→21:57)
[2021-01-28] MEDS: ENOXAPARIN SODIUM 40 MG/0.4 ML SYRINGE SQ SCH ×2 (08:17→21:57)
[2021-01-28] MEDS: THIAMINE HCL 100 MG TABLET PO SCH ×2 (08:18→21:57)
[2021-01-28] MEDS: FLUCONAZOLE 400 MG/NS 200 ML 200 ML IV SCH (08:25)
[2021-01-28] MEDS: DRONABINOL 2.5 MG CAP PO SCH ×2 (08:26→21:57)
[2021-01-28] MEDS: DOCUSATE SODIUM 100 MG CAP PO SCH ×2 (08:26→21:57)
[2021-01-28] MEDS: ASCORBIC ACID 500 MG TAB PO SCH (08:27)
[2021-01-28] MEDS: ASPIRIN 81MG CHEW TAB PO SCH (08:27)
[2021-01-28] MEDS: ZINC OXIDE OINT 60GM TUBE TP SCH ×2 (08:27→21:58)
[2021-01-28] MEDS: PANTOPRAZOLE 40 MG TAB DR PO SCH (08:27)
[2021-01-28] MEDS: ZINC SULFATE 220 CAPSULE PO SCH (08:27)
[2021-01-28] MEDS: LIOTHYRONINE SODIUM 5 MCG PO SCH ×2 (09:00→21:00)
[2021-01-28] MEDS: LEVOTHYROXINE 25 MCG TABLET PO SCH (10:58)
[2021-01-28] MEDS: VANCOMYCIN 500MG+NS 100ML IVPB IV SCH (10:59)
[2021-01-28] MEDS: INSULIN HUMULIN R 100 UNIT/ML 3ML SQ SCH ×3 (12:04→21:00)
[2021-01-28] MEDS: 0.9% NACL 250ML 250 ML IV SCH (17:28)
[2021-01-28] MEDS: VANCOMYCIN 750MG VIAL IV SCH (17:28)
[2021-01-29] VITALS (22 sets, daily range): BP systolic 120–163; BP diastolic 47–70
[2021-01-29] MEDS: BENZONATATE 100 MG CAPSULE PO SCH ×3 (00:13→17:18)
[2021-01-29] MEDS: [UNRECOGNIZED DRUG - OTHER] IV SCH ×5 (00:13→23:49)
[2021-01-29] MEDS: ASCORBIC ACID IV SCH ×5 (00:13→23:49)
[2021-01-29] MEDS: SOLU-MEDROL 125MG VIAL IVP SCH ×2 (01:03→12:03)
[2021-01-29] MEDS: ZOSYN 3.375GM+NS 50ML 50 ML IV SCH ×3 (04:43→21:03)
[2021-01-29] MEDS: DIAZEPAM 5 MG TABLET PO SCH ×4 (04:44→21:04)
[2021-01-29] MEDS: VANCOMYCIN 750MG VIAL IV SCH ×2 (05:03→17:20)
[2021-01-29] MEDS: 0.9% NACL 250ML 250 ML IV SCH ×2 (05:03→17:20)
[2021-01-29] MEDS: INSULIN HUMULIN R 100 UNIT/ML 3ML SQ SCH ×4 (06:51→20:49)
[2021-01-29] MEDS: ALBUTEROL INHALER 90MCG/INH IH SCH ×4 (07:00→08:21)
[2021-01-29] MEDS: DOCUSATE SODIUM 100 MG CAP PO SCH ×2 (09:00→20:47)
[2021-01-29] MEDS: FLUCONAZOLE 400 MG/NS 200 ML 200 ML IV SCH (09:33)
[2021-01-29] MEDS: ASPIRIN 81MG CHEW TAB PO SCH (09:34)
[2021-01-29] MEDS: DRONABINOL 2.5 MG CAP PO SCH ×2 (09:34→21:04)
[2021-01-29] MEDS: FUROSEMIDE 20 MG TABLET PO SCH (09:34)
[2021-01-29] MEDS: LIOTHYRONINE SODIUM 5 MCG PO SCH ×2 (09:34→20:47)
[2021-01-29] MEDS: PANTOPRAZOLE 40 MG TAB DR PO SCH (09:35)
[2021-01-29] MEDS: ZINC SULFATE 220 CAPSULE PO SCH (09:35)
[2021-01-29] MEDS: ASCORBIC ACID 500 MG TAB PO SCH (09:35)
[2021-01-29] MEDS: THIAMINE HCL 100 MG TABLET PO SCH ×2 (09:35→21:03)
[2021-01-29] MEDS: ZINC OXIDE OINT 60GM TUBE TP SCH ×2 (09:36→21:05)
[2021-01-29] MEDS: ENOXAPARIN SODIUM 40 MG/0.4 ML SYRINGE SQ SCH ×2 (09:36→21:05)
[2021-01-30] VITALS (24 sets, daily range): BP systolic 104–143; BP diastolic 50–73
[2021-01-30] MEDS: BENZONATATE 100 MG CAPSULE PO SCH ×3 (03:07→16:00)
[2021-01-30] MEDS: SOLU-MEDROL 125MG VIAL IVP SCH ×2 (03:07→12:58)
[2021-01-30] MEDS: DIAZEPAM 5 MG TABLET PO SCH ×4 (03:08→21:47)
[2021-01-30] MEDS: ZOSYN 3.375GM+NS 50ML 50 ML IV SCH ×3 (04:06→21:47)
[2021-01-30 04:46] LABS: HEMATOCRIT 35.1 % (36-48); MEAN CORPUSCULAR HEMOGLOBIN 31.7 pg (27.0-33.0); MEAN CORPUSCULAR HGB CONC 33.3 g/dL (32.0-36.0); MEAN CORPUSCULAR VOLUME 95.1 fL (79-99); RED BLOOD CELL COUNT(AUTO) 3.69 MIL/uL (4.00-5.50); RED CELL DISTRIBUTION WIDTH 12.6 % (11.0-15.5); WHITE BLOOD COUNT (AUTO) 16.6 K/uL (4.8-10.8)
[2021-01-30 05:03] LABS: CARBON DIOXIDE 35 mmol/L (21-32); CHLORIDE 106 mmol/L (101-111); CREATININE 0.7 mg/dL (0.5-1.5); GLOMERULAR FILTR. RATE CALC 87 mL/min (>60); GLUCOSE,RANDOM 125 mg/dL (70-105); SODIUM SERUM 145 mmol/L (136-145); UREA NITROGEN, BLOOD 46 mg/dL (7-18)
[2021-01-30 05:05] LABS: CRP QUANTITATIVE < 2.00 mg/L (0.00-9.0)
[2021-01-30] MEDS: ASCORBIC ACID IV SCH ×3 (05:16→16:56)
[2021-01-30] MEDS: [UNRECOGNIZED DRUG - OTHER] IV SCH ×3 (05:16→16:56)
[2021-01-30] MEDS: VANCOMYCIN 750MG VIAL IV SCH ×2 (05:17→16:55)
[2021-01-30] MEDS: 0.9% NACL 250ML 250 ML IV SCH ×2 (06:58→16:55)
[2021-01-30] MEDS: INSULIN HUMULIN R 100 UNIT/ML 3ML SQ SCH ×4 (06:58→21:00)
[2021-01-30] MEDS: ENOXAPARIN SODIUM 40 MG/0.4 ML SYRINGE SQ SCH ×2 (08:35→21:48)
[2021-01-30] MEDS: FLUCONAZOLE 400 MG/NS 200 ML 200 ML IV SCH (08:35)
[2021-01-30] MEDS: PANTOPRAZOLE 40 MG TAB DR PO SCH (08:36)
[2021-01-30] MEDS: DRONABINOL 2.5 MG CAP PO SCH (08:36)
[2021-01-30] MEDS: ZINC SULFATE 220 CAPSULE PO SCH (08:36)
[2021-01-30] MEDS: LEVOTHYROXINE 25 MCG TABLET PO SCH (08:36)
[2021-01-30] MEDS: ASPIRIN 81MG CHEW TAB PO SCH (08:36)
[2021-01-30] MEDS: DOCUSATE SODIUM 100 MG CAP PO SCH ×2 (08:36→21:47)
[2021-01-30] MEDS: FUROSEMIDE 20 MG TABLET PO SCH (08:37)
[2021-01-30] MEDS: LIOTHYRONINE SODIUM 5 MCG PO SCH ×2 (08:37→21:00)
[2021-01-30] MEDS: THIAMINE HCL 100 MG TABLET PO SCH ×2 (08:37→21:47)
[2021-01-30] MEDS: ASCORBIC ACID 500 MG TAB PO SCH (08:37)
[2021-01-30] MEDS: ZINC OXIDE OINT 60GM TUBE TP SCH ×2 (08:38→21:00)
[2021-01-30] MEDS ORDERED: PHARMACY COMMUNICATION MISC SCH ×2 (19:00)
[2021-01-31] VITALS (23 sets, daily range): BP systolic 112–151; BP diastolic 48–97
[2021-01-31] MEDS: BENZONATATE 100 MG CAPSULE PO SCH ×4 (00:58→21:27)
[2021-01-31] MEDS: [UNRECOGNIZED DRUG - OTHER] IV SCH ×3 (00:58→13:24)
[2021-01-31] MEDS: ASCORBIC ACID IV SCH ×3 (00:58→13:24)
[2021-01-31] MEDS: SOLU-MEDROL 125MG VIAL IVP SCH ×3 (00:58→21:27)
[2021-01-31] MEDS: VANCOMYCIN 750MG VIAL IV SCH ×2 (05:19→17:17)
[2021-01-31] MEDS: DIAZEPAM 5 MG TABLET PO SCH ×4 (05:19→21:28)
[2021-01-31] MEDS: 0.9% NACL 250ML 250 ML IV SCH ×2 (05:20→17:17)
[2021-01-31] MEDS: INSULIN HUMULIN R 100 UNIT/ML 3ML SQ SCH ×4 (06:47→20:29)
[2021-01-31] MEDS: ZOSYN 3.375GM+NS 50ML 50 ML IV SCH ×3 (06:48→19:53)
[2021-01-31 06:51] LABS: MEAN CORPUSCULAR HEMOGLOBIN 31.3 pg (27.0-33.0); MEAN CORPUSCULAR HGB CONC 32.7 g/dL (32.0-36.0); MEAN CORPUSCULAR VOLUME 95.9 fL (79-99); RED BLOOD CELL COUNT(AUTO) 3.86 MIL/uL (4.00-5.50); RED CELL DISTRIBUTION WIDTH 13.1 % (11.0-15.5); WHITE BLOOD COUNT (AUTO) 14.6 K/uL (4.8-10.8)
[2021-01-31 07:13] LABS: ALANINE AMINOTRANSFERASE 57 U/L (12-78); ALBUMIN 2.5 g/dL (3.5-5.0); ASPARTATE AMINOTRANSFERASE 27 U/L (10-37); BILIRUBIN,TOTAL 0.6 mg/dL (0.2-1.0); CARBON DIOXIDE 36 mmol/L (21-32); CHLORIDE 106 mmol/L (101-111); CREATININE 0.8 mg/dL (0.5-1.5); GLOMERULAR FILTR. RATE CALC 74 mL/min (>60); GLUCOSE,RANDOM 144 mg/dL (70-105); SODIUM SERUM 145 mmol/L (136-145); TOTAL PROTEIN, SERUM 5.4 g/dL (6.0-8.3); UREA NITROGEN, BLOOD 46 mg/dL (7-18)
[2021-01-31 07:17] LABS: CRP QUANTITATIVE < 2.00 mg/L (0.00-9.0)
[2021-01-31] MEDS: ALBUTEROL INHALER 90MCG/INH IH SCH ×5 (08:22→23:30)
[2021-01-31] MEDS: ENOXAPARIN SODIUM 40 MG/0.4 ML SYRINGE SQ SCH ×2 (09:50→19:54)
[2021-01-31] MEDS: FUROSEMIDE 20 MG TABLET PO SCH (09:51)
[2021-01-31] MEDS: ZINC SULFATE 220 CAPSULE PO SCH (09:51)
[2021-01-31] MEDS: ASCORBIC ACID 500 MG TAB PO SCH (09:52)
[2021-01-31] MEDS: PANTOPRAZOLE 40 MG TAB DR PO SCH (09:52)
[2021-01-31] MEDS: ASPIRIN 81MG CHEW TAB PO SCH (09:53)
[2021-01-31] MEDS: DOCUSATE SODIUM 100 MG CAP PO SCH ×2 (09:53→19:52)
[2021-01-31] MEDS: FLUCONAZOLE 400 MG/NS 200 ML 200 ML IV SCH (09:53)
[2021-01-31] MEDS: THIAMINE HCL 100 MG TABLET PO SCH ×2 (09:53→19:52)
[2021-01-31] MEDS: LIOTHYRONINE SODIUM 5 MCG PO SCH ×2 (09:54→21:24)
[2021-01-31] MEDS: ZINC OXIDE OINT 60GM TUBE TP SCH ×2 (09:54→19:54)
[2021-01-31] MEDS: ERGOCALCIFEROL (VITAMIN D2) 50,000 UNIT CAPSULE PO SCH (09:57)
[2021-01-31] MEDS ORDERED: PHARMACY COMMUNICATION MISC SCH (16:30)
[2021-01-31] MEDS ORDERED: 0.9%NACL 50ML 50 ML IV ONE (19:49)
[2021-01-31] MEDS: PROCALAMINE IV SOLUTION 1,000 ML IV SCH (19:57)
[2021-02-01] VITALS (24 sets, daily range): BP systolic 127–158; BP diastolic 49–74
[2021-02-01 04:07] LABS: HEMATOCRIT 33.7 % (36-48); MEAN CORPUSCULAR HEMOGLOBIN 31.5 pg (27.0-33.0); MEAN CORPUSCULAR HGB CONC 32.6 g/dL (32.0-36.0); MEAN CORPUSCULAR VOLUME 96.6 fL (79-99); RED BLOOD CELL COUNT(AUTO) 3.49 MIL/uL (4.00-5.50); WHITE BLOOD COUNT (AUTO) 11.5 K/uL (4.8-10.8)
[2021-02-01] MEDS: ALBUTEROL INHALER 90MCG/INH IH SCH ×5 (04:07→19:30)
[2021-02-01] MEDS: DIAZEPAM 5 MG TABLET PO SCH ×4 (04:12→22:45)
[2021-02-01] MEDS: ZOSYN 3.375GM+NS 50ML 50 ML IV SCH ×3 (04:12→21:20)
[2021-02-01 04:38] LABS: CARBON DIOXIDE 32 mmol/L (21-32); CHLORIDE 106 mmol/L (101-111); CREATININE 0.6 mg/dL (0.5-1.5); GLOMERULAR FILTR. RATE CALC 104 mL/min (>60); GLUCOSE,RANDOM 148 mg/dL (70-105); POTASSIUM 4.1 mmol/L (3.5-5.1); SODIUM SERUM 143 mmol/L (136-145); UREA NITROGEN, BLOOD 47 mg/dL (7-18)
[2021-02-01 04:45] LABS: CRP QUANTITATIVE < 2.00 mg/L (0.00-9.0)
[2021-02-01] MEDS: VANCOMYCIN 750MG VIAL IV SCH ×2 (05:22→17:48)
[2021-02-01] MEDS: 0.9% NACL 250ML 250 ML IV SCH ×2 (05:22→17:48)
[2021-02-01] MEDS: BENZONATATE 100 MG CAPSULE PO SCH ×3 (05:23→22:45)
[2021-02-01] MEDS: INSULIN HUMULIN R 100 UNIT/ML 3ML SQ SCH ×4 (06:31→21:00)
[2021-02-01] MEDS: ZINC SULFATE 220 CAPSULE PO SCH (08:52)
[2021-02-01] MEDS: FUROSEMIDE 20 MG TABLET PO SCH (08:52)
[2021-02-01] MEDS: SOLU-MEDROL 125MG VIAL IVP SCH ×2 (08:52→21:21)
[2021-02-01] MEDS: ASCORBIC ACID 500 MG TAB PO SCH (08:52)
[2021-02-01] MEDS: DOCUSATE SODIUM 100 MG CAP PO SCH ×2 (08:52→21:21)
[2021-02-01] MEDS: FLUCONAZOLE 400 MG/NS 200 ML 200 ML IV SCH (08:52)
[2021-02-01] MEDS: PANTOPRAZOLE 40 MG TAB DR PO SCH (08:52)
[2021-02-01] MEDS: ENOXAPARIN SODIUM 40 MG/0.4 ML SYRINGE SQ SCH ×2 (08:52→21:24)
[2021-02-01] MEDS: THIAMINE HCL 100 MG TABLET PO SCH ×2 (08:52→21:21)
[2021-02-01] MEDS: ASPIRIN 81MG CHEW TAB PO SCH (08:52)
[2021-02-01] MEDS: LIOTHYRONINE SODIUM 5 MCG PO SCH ×2 (08:53→21:25)
[2021-02-01] MEDS: ZINC OXIDE OINT 60GM TUBE TP SCH ×2 (08:53→22:33)
[2021-02-01] MEDS: LEVOTHYROXINE 25 MCG TABLET PO SCH (08:59)
[2021-02-01] MEDS: PROCALAMINE IV SOLUTION 1,000 ML IV SCH ×2 (11:48→22:48)
[2021-02-01] MEDS ORDERED: 0.9%NACL 50ML 50 ML IV ONE ×2 (12:39→21:07)
[2021-02-02] VITALS (17 sets, daily range): BP systolic 108–146; BP diastolic 49–81
[2021-02-02] MEDS: ALBUTEROL INHALER 90MCG/INH IH SCH ×7 (00:09→23:07)
[2021-02-02] MEDS ORDERED: 0.9%NACL 50ML 50 ML IV ONE ×2 (04:12→19:43)
[2021-02-02] MEDS: ZOSYN 3.375GM+NS 50ML 50 ML IV SCH ×3 (04:38→20:56)
[2021-02-02] MEDS: DIAZEPAM 5 MG TABLET PO SCH ×4 (04:39→21:27)
[2021-02-02] MEDS: VANCOMYCIN 750MG VIAL IV SCH ×2 (06:08→18:39)
[2021-02-02] MEDS: BENZONATATE 100 MG CAPSULE PO SCH ×3 (06:09→20:59)
[2021-02-02] MEDS: 0.9% NACL 250ML 250 ML IV SCH ×2 (06:10→18:39)
[2021-02-02] MEDS: INSULIN HUMULIN R 100 UNIT/ML 3ML SQ SCH ×3 (06:11→16:30)
[2021-02-02] MEDS: FLUCONAZOLE 400 MG/NS 200 ML 200 ML IV SCH (08:55)
[2021-02-02] MEDS: SOLU-MEDROL 125MG VIAL IVP SCH ×2 (08:55→21:26)
[2021-02-02] MEDS: THIAMINE HCL 100 MG TABLET PO SCH ×2 (08:55→20:58)
[2021-02-02] MEDS: PANTOPRAZOLE 40 MG TAB DR PO SCH (08:55)
[2021-02-02] MEDS: ASPIRIN 81MG CHEW TAB PO SCH (08:55)
[2021-02-02] MEDS: ZINC SULFATE 220 CAPSULE PO SCH (08:56)
[2021-02-02] MEDS: ASCORBIC ACID 500 MG TAB PO SCH (08:56)
[2021-02-02] MEDS: FUROSEMIDE 20 MG TABLET PO SCH (08:57)
[2021-02-02] MEDS: ENOXAPARIN SODIUM 40 MG/0.4 ML SYRINGE SQ SCH ×2 (08:58→20:59)
[2021-02-02] MEDS: LIOTHYRONINE SODIUM 5 MCG PO SCH ×2 (08:59→21:28)
[2021-02-02] MEDS: ZINC OXIDE OINT 60GM TUBE TP SCH ×2 (08:59→21:28)
[2021-02-02] MEDS: DOCUSATE SODIUM 100 MG CAP PO SCH ×2 (08:59→20:59)
[2021-02-02] MEDS: PROCALAMINE IV SOLUTION 1,000 ML IV SCH (16:55)
[2021-02-03] VITALS (20 sets, daily range): BP systolic 103–166; BP diastolic 51–83
[2021-02-03] MEDS: PROCALAMINE IV SOLUTION 1,000 ML IV SCH ×2 (03:21→17:07)
[2021-02-03] MEDS: DIAZEPAM 5 MG TABLET PO SCH ×4 (04:08→20:32)
[2021-02-03] MEDS: ALBUTEROL INHALER 90MCG/INH IH SCH ×5 (04:09→20:11)
[2021-02-03] MEDS ORDERED: 0.9%NACL 50ML 50 ML IV ONE ×2 (04:27→19:53)
[2021-02-03] MEDS: ZOSYN 3.375GM+NS 50ML 50 ML IV SCH ×3 (04:46→20:09)
[2021-02-03] MEDS: BENZONATATE 100 MG CAPSULE PO SCH ×3 (05:25→20:32)
[2021-02-03] MEDS: VANCOMYCIN 750MG VIAL IV SCH ×2 (05:53→17:03)
[2021-02-03] MEDS: 0.9% NACL 250ML 250 ML IV SCH ×2 (05:53→17:03)
[2021-02-03 08:18] LABS: BASOPHILS % (AUTO) 0.1 % (0.0-5.0); EOSINOPHILS % (AUTO) 0.1 % (0.0-8.0); HEMATOCRIT 35.8 % (36-48); LYMPHOCYTES % (AUTO) 1.1 % (21.0-51.0); MEAN CORPUSCULAR HEMOGLOBIN 32.2 pg (27.0-33.0); MEAN CORPUSCULAR HGB CONC 33.8 g/dL (32.0-36.0); MEAN CORPUSCULAR VOLUME 95.2 fL (79-99); NEUTROPHILS % (AUTO) 96.1 % (40.0-77.0); PLATELET COUNT (AUTO) 91 K/uL (130-400); RED BLOOD CELL COUNT(AUTO) 3.76 MIL/uL (4.00-5.50); RED CELL DISTRIBUTION WIDTH 13.2 % (11.0-15.5)
[2021-02-03 08:27] LABS: CREATININE 0.6 mg/dL (0.5-1.5); POTASSIUM 4.5 mmol/L (3.5-5.1)
[2021-02-03] MEDS: ZINC OXIDE OINT 60GM TUBE TP SCH ×2 (09:00→20:11)
[2021-02-03] MEDS: ASPIRIN 81MG CHEW TAB PO SCH (09:38)
[2021-02-03] MEDS: SOLU-MEDROL 125MG VIAL IVP SCH ×2 (09:38→20:31)
[2021-02-03] MEDS: PANTOPRAZOLE 40 MG TAB DR PO SCH (09:38)
[2021-02-03] MEDS: FLUCONAZOLE 400 MG/NS 200 ML 200 ML IV SCH (09:38)
[2021-02-03] MEDS: ASCORBIC ACID 500 MG TAB PO SCH (09:39)
[2021-02-03] MEDS: THIAMINE HCL 100 MG TABLET PO SCH ×2 (09:39→20:10)
[2021-02-03] MEDS: DOCUSATE SODIUM 100 MG CAP PO SCH ×2 (09:40→20:10)
[2021-02-03] MEDS: FUROSEMIDE 20 MG TABLET PO SCH (09:40)
[2021-02-03] MEDS: ZINC SULFATE 220 CAPSULE PO SCH (09:41)
[2021-02-03] MEDS: ENOXAPARIN SODIUM 40 MG/0.4 ML SYRINGE SQ SCH ×2 (09:42→20:11)
[2021-02-03] MEDS: LIOTHYRONINE SODIUM 5 MCG PO SCH ×2 (10:10→20:10)
[2021-02-04] VITALS (24 sets, daily range): BP systolic 104–161; BP diastolic 46–93
[2021-02-04] MEDS: ALBUTEROL INHALER 90MCG/INH IH SCH ×7 (00:21→23:26)
[2021-02-04] MEDS ORDERED: 0.9%NACL 50ML 50 ML IV ONE (03:41)
[2021-02-04] MEDS: DIAZEPAM 5 MG TABLET PO SCH ×4 (03:43→23:26)
[2021-02-04] MEDS: ZOSYN 3.375GM+NS 50ML 50 ML IV SCH (04:17)
[2021-02-04] MEDS: BENZONATATE 100 MG CAPSULE PO SCH ×3 (05:41→20:18)
[2021-02-04] MEDS: VANCOMYCIN 750MG VIAL IV SCH (05:41)
[2021-02-04] MEDS: 0.9% NACL 250ML 250 ML IV SCH (05:41)
[2021-02-04] MEDS: PROCALAMINE IV SOLUTION 1,000 ML IV SCH ×2 (05:42→13:26)
[2021-02-04 06:43] LABS: HEMATOCRIT 34.9 % (36-48); MEAN CORPUSCULAR HEMOGLOBIN 31.7 pg (27.0-33.0); MEAN CORPUSCULAR HGB CONC 33.2 g/dL (32.0-36.0); MEAN CORPUSCULAR VOLUME 95.4 fL (79-99); RED BLOOD CELL COUNT(AUTO) 3.66 MIL/uL (4.00-5.50); RED CELL DISTRIBUTION WIDTH 13.5 % (11.0-15.5); WHITE BLOOD COUNT (AUTO) 11.8 K/uL (4.8-10.8)
[2021-02-04 06:59] LABS: CARBON DIOXIDE 31 mmol/L (21-32); CHLORIDE 107 mmol/L (101-111); CREATININE 0.6 mg/dL (0.5-1.5); GLOMERULAR FILTR. RATE CALC 104 mL/min (>60); GLUCOSE,RANDOM 163 mg/dL (70-105); POTASSIUM 4.2 mmol/L (3.5-5.1); SODIUM SERUM 143 mmol/L (136-145); UREA NITROGEN, BLOOD 30 mg/dL (7-18)
[2021-02-04 07:07] LABS: CRP QUANTITATIVE < 2.00 mg/L (0.00-9.0)
[2021-02-04] MEDS: LEVOTHYROXINE 25 MCG TABLET PO SCH (09:22)
[2021-02-04] MEDS: ASCORBIC ACID 500 MG TAB PO SCH (09:22)
[2021-02-04] MEDS: PANTOPRAZOLE 40 MG TAB DR PO SCH (09:22)
[2021-02-04] MEDS: ZINC SULFATE 220 CAPSULE PO SCH (09:22)
[2021-02-04] MEDS: THIAMINE HCL 100 MG TABLET PO SCH ×2 (09:22→20:17)
[2021-02-04] MEDS: DOCUSATE SODIUM 100 MG CAP PO SCH ×2 (09:22→20:17)
[2021-02-04] MEDS: SOLU-MEDROL 40MG VIAL IVP SCH ×2 (09:23→20:18)
[2021-02-04] MEDS: FUROSEMIDE 20 MG TABLET PO SCH (09:23)
[2021-02-04] MEDS: ASPIRIN 81MG CHEW TAB PO SCH (09:23)
[2021-02-04] MEDS: LIOTHYRONINE SODIUM 5 MCG PO SCH ×2 (09:24→20:19)
[2021-02-04] MEDS: ZINC OXIDE OINT 60GM TUBE TP SCH ×2 (09:24→20:19)
[2021-02-05] VITALS (24 sets, daily range): BP systolic 95–157; BP diastolic 51–89
[2021-02-05] MEDS: DIAZEPAM 5 MG TABLET PO SCH ×4 (03:33→22:00)
[2021-02-05] MEDS: ALBUTEROL INHALER 90MCG/INH IH SCH ×6 (03:34→23:25)
[2021-02-05] MEDS: BENZONATATE 100 MG CAPSULE PO SCH ×3 (05:38→21:22)
[2021-02-05 06:33] LABS: MEAN CORPUSCULAR HGB CONC 33.4 g/dL (32.0-36.0); MEAN CORPUSCULAR VOLUME 95.7 fL (79-99); RED BLOOD CELL COUNT(AUTO) 3.97 MIL/uL (4.00-5.50); WHITE BLOOD COUNT (AUTO) 14.8 K/uL (4.8-10.8)
[2021-02-05 06:51] LABS: ALBUMIN 2.7 g/dL (3.5-5.0); BILIRUBIN,TOTAL 0.5 mg/dL (0.2-1.0); CREATININE 0.5 mg/dL (0.5-1.5); POTASSIUM 4.3 mmol/L (3.5-5.1); TOTAL PROTEIN, SERUM 5.7 g/dL (6.0-8.3)
[2021-02-05] MEDS: SOLU-MEDROL 40MG VIAL IVP SCH ×2 (09:44→21:21)
[2021-02-05] MEDS: FUROSEMIDE 20 MG TABLET PO SCH (09:44)
[2021-02-05] MEDS: ASCORBIC ACID 500 MG TAB PO SCH (09:44)
[2021-02-05] MEDS: PANTOPRAZOLE 40 MG TAB DR PO SCH (09:44)
[2021-02-05] MEDS: ZINC SULFATE 220 CAPSULE PO SCH (09:44)
[2021-02-05] MEDS: ASPIRIN 81MG CHEW TAB PO SCH (09:44)
[2021-02-05] MEDS: DOCUSATE SODIUM 100 MG CAP PO SCH ×2 (09:44→21:00)
[2021-02-05] MEDS: THIAMINE HCL 100 MG TABLET PO SCH ×2 (09:44→21:00)
[2021-02-05] MEDS: ZINC OXIDE OINT 60GM TUBE TP SCH ×2 (09:45→21:34)
[2021-02-05] MEDS: LIOTHYRONINE SODIUM 5 MCG PO SCH ×2 (09:47→21:00)
[2021-02-05] MEDS: PROCALAMINE IV SOLUTION 1,000 ML IV SCH (17:27)
[2021-02-05] MEDS ORDERED: ZIPRASIDONE MESYLATE 20 MG/VIAL IM PRN (19:51)
[2021-02-05] MEDS ORDERED: DEXMEDETOMIDINE 400MCG/NS100ML IV STA (20:05)
[2021-02-05] MEDS ORDERED: DEXMEDETOMIDINE 400MCG/NS100ML IV ONE (20:10)
[2021-02-06] VITALS (24 sets, daily range): BP systolic 102–174; BP diastolic 50–83
[2021-02-06] MEDS: PROCALAMINE IV SOLUTION 1,000 ML IV SCH ×2 (01:24→14:11)
[2021-02-06] MEDS: ALBUTEROL INHALER 90MCG/INH IH SCH ×4 (02:08→12:58)
[2021-02-06] MEDS: DIAZEPAM 5 MG TABLET PO SCH (04:00)
[2021-02-06] MEDS: BENZONATATE 100 MG CAPSULE PO SCH ×3 (05:18→21:00)
[2021-02-06] MEDS: DEXMEDETOMIDINE 400MCG/NS100ML IV SCH ×3 (05:29→21:01)
[2021-02-06 07:11] LABS: ABG BASE EXCESS 1.9 mmol/L (-2.0-3.0); ABG HCO3 26.3 mmol/L (21.0-28.0); ABG OXYGEN SATURATION 94.5 % (95.0-99.0); ABG PCO2 40 mmHg (32-45)
[2021-02-06 07:18] LABS: ALBUMIN 2.5 g/dL (3.5-5.0); BILIRUBIN,TOTAL 0.6 mg/dL (0.2-1.0); CREATININE 0.6 mg/dL (0.5-1.5); HEMATOCRIT 36.7 % (36-48); MEAN CORPUSCULAR HEMOGLOBIN 31.8 pg (27.0-33.0); MEAN CORPUSCULAR HGB CONC 32.7 g/dL (32.0-36.0); MEAN CORPUSCULAR VOLUME 97.3 fL (79-99); PLATELET COUNT (AUTO) 74 K/uL (130-400); POTASSIUM 4.7 mmol/L (3.5-5.1); RED BLOOD CELL COUNT(AUTO) 3.77 MIL/uL (4.00-5.50); RED CELL DISTRIBUTION WIDTH 14.1 % (11.0-15.5); TOTAL PROTEIN, SERUM 5.3 g/dL (6.0-8.3); WHITE BLOOD COUNT (AUTO) 13.2 K/uL (4.8-10.8)
[2021-02-06] MEDS: DOCUSATE SODIUM 100 MG CAP PO SCH ×2 (09:00→21:00)
[2021-02-06] MEDS: THIAMINE HCL 100 MG TABLET PO SCH ×2 (09:00→21:00)
[2021-02-06] MEDS: FUROSEMIDE 20 MG TABLET PO SCH (09:00)
[2021-02-06] MEDS: PANTOPRAZOLE 40 MG TAB DR PO SCH (09:00)
[2021-02-06] MEDS: ZINC OXIDE OINT 60GM TUBE TP SCH ×2 (09:00→21:00)
[2021-02-06] MEDS: SOLU-MEDROL 40MG VIAL IVP SCH ×2 (09:14→20:57)
[2021-02-06] MEDS: LEVOTHYROXINE 25 MCG TABLET PO SCH (10:30)
[2021-02-06] MEDS ORDERED: 0.9% NACL 250ML IVPB SCH (11:30)
[2021-02-06] MEDS ORDERED: DOXYCYCLINE 100MG IVPB (VIAL) IVPB SCH (11:30)
[2021-02-06 12:43] LABS: INR 1.07 (0.85-1.15); PROTHROMBIN TIME 11.6 SEC (9.6-11.6)
[2021-02-06 12:45] LABS: PARTIAL THROMBOPLASTIN TIME 20.6 SEC (26.3-35.5)
[2021-02-06] MEDS ORDERED: PHARMACY COMMUNICATION MISC SCH (13:00)
[2021-02-06] MEDS: DOXYCYCLINE 100MG+NS 250ML 250 ML IV SCH ×2 (13:15→20:58)
[2021-02-06] MEDS: [UNRECOGNIZED DRUG - OTHER] IV PRN ×2 (13:23→21:00)
[2021-02-06] MEDS: ARGATROBAN IV PRN ×2 (13:23→21:00)
[2021-02-06 13:35] LABS: EOSINOPHILS % (MANUAL) 1 % (1-6); LYMPHOCYTES % (MANUAL) 2 % (22-44); MAN.DIFF COMMENT-IMPRESSION MANUAL DIFFERENTIAL; MONOCYTES % (MANUAL) 1 % (2-9); SEGMENTED NEUTROPHILS % 96 % (40-70)
[2021-02-06 13:36] LABS: PLATELET MORPHOLOGY COMMENT DECREASED
[2021-02-06 17:59] LABS: PROTHROMBIN TIME 34.8 SEC (9.6-11.6)
[2021-02-06 18:06] LABS: INR 3.59 (0.85-1.15)
[2021-02-06] MEDS ORDERED: COMPOUND IV REFRIGERATED 1 EACH IVSOLN MISC PRN (20:30)
[2021-02-06] MEDS ORDERED: 0.9% NACL 250ML 250 ML ONE (20:45)
[2021-02-07] VITALS (24 sets, daily range): BP systolic 104–190; BP diastolic 55–89
[2021-02-07] MEDS: [UNRECOGNIZED DRUG - OTHER] IV PRN ×3 (01:55→18:55)
[2021-02-07] MEDS: ARGATROBAN IV PRN ×3 (01:55→18:55)
[2021-02-07] MEDS: PROCALAMINE IV SOLUTION 1,000 ML IV SCH (03:13)
[2021-02-07 04:33] LABS: ABG BASE EXCESS 3.4 mmol/L (-2.0-3.0); ABG OXYGEN SATURATION 90.8 % (95.0-99.0); ABG PCO2 43 mmHg (32-45)
[2021-02-07] MEDS: BENZONATATE 100 MG CAPSULE PO SCH ×3 (04:35→20:36)
[2021-02-07 06:28] LABS: BASOPHILS % (AUTO) 0.1 % (0.0-5.0); EOSINOPHILS % (AUTO) 0.1 % (0.0-8.0); HEMATOCRIT 36.7 % (36-48); LYMPHOCYTES % (AUTO) 1.3 % (21.0-51.0); MEAN CORPUSCULAR HEMOGLOBIN 31.9 pg (27.0-33.0); MEAN CORPUSCULAR HGB CONC 33.2 g/dL (32.0-36.0); MEAN CORPUSCULAR VOLUME 96.1 fL (79-99); MONOCYTES % (AUTO) 1.1 % (3.0-13.0); NEUTROPHILS % (AUTO) 96.7 % (40.0-77.0); PLATELET COUNT (AUTO) 67 K/uL (130-400); RED BLOOD CELL COUNT(AUTO) 3.82 MIL/uL (4.00-5.50); RED CELL DISTRIBUTION WIDTH 14.5 % (11.0-15.5); WHITE BLOOD COUNT (AUTO) 10.5 K/uL (4.8-10.8)
[2021-02-07 06:42] LABS: INR 1.57 (0.85-1.15); PROTHROMBIN TIME 16.4 SEC (9.6-11.6)
[2021-02-07 06:43] LABS: PARTIAL THROMBOPLASTIN TIME 41.8 SEC (26.3-35.5)
[2021-02-07 06:52] LABS: B-TYPE NATRIURETIC PEPTIDE 33 pg/mL (0-100)
[2021-02-07 06:57] LABS: ALBUMIN 2.4 g/dL (3.5-5.0); BILIRUBIN,TOTAL 0.6 mg/dL (0.2-1.0); CREATININE 0.5 mg/dL (0.5-1.5); POTASSIUM 4.7 mmol/L (3.5-5.1); TOTAL PROTEIN, SERUM 5.4 g/dL (6.0-8.3)
[2021-02-07] MEDS: DOCUSATE SODIUM 100 MG CAP PO SCH ×2 (09:00→20:36)
[2021-02-07] MEDS: THIAMINE HCL 100 MG TABLET PO SCH ×2 (09:00→20:36)
[2021-02-07] MEDS: FUROSEMIDE 20 MG TABLET PO SCH (09:00)
[2021-02-07] MEDS: PANTOPRAZOLE 40 MG TAB DR PO SCH (09:00)
[2021-02-07] MEDS: ZINC OXIDE OINT 60GM TUBE TP SCH ×2 (09:07→20:36)
[2021-02-07] MEDS: SOLU-MEDROL 40MG VIAL IVP SCH ×2 (09:08→20:35)
[2021-02-07] MEDS: DOXYCYCLINE 100MG+NS 250ML 250 ML IV SCH ×2 (09:08→20:31)
[2021-02-07] MEDS: DEXMEDETOMIDINE 400MCG/NS100ML IV SCH (09:08)
[2021-02-07] MEDS ORDERED: CLINIMIX-E 4.25AA/D5+LYT1000ML 1,000 ML IV NR (11:42)
[2021-02-07] MEDS: CLINIMIX-E4.25%AA/D5+LYT2000ML 2,000 ML IV NR (13:25)
[2021-02-07] MEDS ORDERED: 0.9% NACL 250ML 250 ML ONE (19:53)
[2021-02-08] VITALS (25 sets, daily range): BP systolic 111–170; BP diastolic 52–98
[2021-02-08] MEDS: ARGATROBAN IV PRN ×5 (00:49→23:56)
[2021-02-08] MEDS: [UNRECOGNIZED DRUG - OTHER] IV PRN ×5 (00:49→23:56)
[2021-02-08 03:53] LABS: BASOPHILS % (AUTO) 0.1 % (0.0-5.0); EOSINOPHILS % (AUTO) 0.1 % (0.0-8.0); LYMPHOCYTES % (AUTO) 1.5 % (21.0-51.0); MEAN CORPUSCULAR HGB CONC 33.8 g/dL (32.0-36.0); MEAN CORPUSCULAR VOLUME 97.7 fL (79-99); MONOCYTES % (AUTO) 1.2 % (3.0-13.0); NEUTROPHILS % (AUTO) 96.4 % (40.0-77.0); PLATELET COUNT (AUTO) 73 K/uL (130-400); RED BLOOD CELL COUNT(AUTO) 3.48 MIL/uL (4.00-5.50); RED CELL DISTRIBUTION WIDTH 14.7 % (11.0-15.5); WHITE BLOOD COUNT (AUTO) 10.3 K/uL (4.8-10.8)
[2021-02-08 04:04] LABS: ALBUMIN 2.3 g/dL (3.5-5.0); BILIRUBIN,TOTAL 0.7 mg/dL (0.2-1.0); CREATININE 0.6 mg/dL (0.5-1.5); POTASSIUM 4.7 mmol/L (3.5-5.1); TOTAL PROTEIN, SERUM 5.1 g/dL (6.0-8.3)
[2021-02-08] MEDS: BENZONATATE 100 MG CAPSULE PO SCH ×3 (05:05→20:18)
[2021-02-08 05:20] LABS: INR 1.76 (0.85-1.15); PROTHROMBIN TIME 18.2 SEC (9.6-11.6)
[2021-02-08 05:21] LABS: PARTIAL THROMBOPLASTIN TIME 41.9 SEC (26.3-35.5)
[2021-02-08] MEDS: PANTOPRAZOLE 40 MG TAB DR PO SCH (08:45)
[2021-02-08] MEDS: LEVOTHYROXINE 25 MCG TABLET PO SCH (08:45)
[2021-02-08] MEDS: THIAMINE HCL 100 MG TABLET PO SCH ×2 (08:45→20:19)
[2021-02-08] MEDS: DOCUSATE SODIUM 100 MG CAP PO SCH ×2 (08:45→20:18)
[2021-02-08] MEDS: SOLU-MEDROL 40MG VIAL IVP SCH ×2 (08:45→20:19)
[2021-02-08] MEDS: ZINC OXIDE OINT 60GM TUBE TP SCH ×2 (08:46→21:45)
[2021-02-08] MEDS: FUROSEMIDE 20 MG TABLET PO SCH (08:46)
[2021-02-08] MEDS: DOXYCYCLINE 100MG+NS 250ML 250 ML IV SCH ×2 (08:48→20:18)
[2021-02-08] MEDS: DEXMEDETOMIDINE 400MCG/NS100ML IV SCH (13:53)
[2021-02-08 14:42] LABS: INR 2.44 (0.85-1.15); PROTHROMBIN TIME 24.5 SEC (9.6-11.6)
[2021-02-09] VITALS (21 sets, daily range): BP systolic 119–158; BP diastolic 51–82
[2021-02-09] MEDS: CLINIMIX-E4.25%AA/D5+LYT2000ML 2,000 ML IV NR (00:32)
[2021-02-09 04:36] LABS: BASOPHILS % (AUTO) 0.2 % (0.0-5.0); EOSINOPHILS % (AUTO) 0.1 % (0.0-8.0); HEMATOCRIT 33.4 % (36-48); LYMPHOCYTES % (AUTO) 1.3 % (21.0-51.0); MEAN CORPUSCULAR HEMOGLOBIN 33.1 pg (27.0-33.0); MEAN CORPUSCULAR HGB CONC 33.5 g/dL (32.0-36.0); MEAN CORPUSCULAR VOLUME 98.8 fL (79-99); MONOCYTES % (AUTO) 1.2 % (3.0-13.0); NEUTROPHILS % (AUTO) 96.4 % (40.0-77.0); PLATELET COUNT (AUTO) 66 K/uL (130-400); RED BLOOD CELL COUNT(AUTO) 3.38 MIL/uL (4.00-5.50); RED CELL DISTRIBUTION WIDTH 15.5 % (11.0-15.5); WHITE BLOOD COUNT (AUTO) 11.7 K/uL (4.8-10.8)
[2021-02-09 04:51] LABS: ALBUMIN 2.4 g/dL (3.5-5.0); BILIRUBIN,TOTAL 0.7 mg/dL (0.2-1.0); CREATININE 0.5 mg/dL (0.5-1.5); TOTAL PROTEIN, SERUM 5.2 g/dL (6.0-8.3)
[2021-02-09] MEDS: BENZONATATE 100 MG CAPSULE PO SCH ×3 (05:43→21:46)
[2021-02-09] MEDS: ZINC OXIDE OINT 60GM TUBE TP SCH ×2 (09:00→21:46)
[2021-02-09] MEDS: POLYETHYLENE GLYCOL 3350 17 GM POWD.PACK PO SCH (09:00)
[2021-02-09] MEDS: DOCUSATE SODIUM 100 MG CAP PO SCH ×3 (09:00→21:46)
[2021-02-09] MEDS: DOXYCYCLINE 100MG+NS 250ML 250 ML IV SCH ×2 (09:28→21:45)
[2021-02-09] MEDS: PANTOPRAZOLE 40 MG TAB DR PO SCH (09:30)
[2021-02-09] MEDS: FUROSEMIDE 20 MG TABLET PO SCH (09:30)
[2021-02-09] MEDS: SOLU-MEDROL 40MG VIAL IVP SCH ×2 (09:30→21:45)
[2021-02-09] MEDS: THIAMINE HCL 100 MG TABLET PO SCH ×2 (09:30→21:46)
[2021-02-09] MEDS: ARGATROBAN IV PRN (09:31)
[2021-02-09] MEDS: [UNRECOGNIZED DRUG - OTHER] IV PRN (09:31)
[2021-02-09] MEDS: SENNOSIDES 8.6 MG TABLET PO SCH (10:04)
[2021-02-09] MEDS ORDERED: SODIUM CHLORIDE IV PRN ×4 (13:45→14:00)
[2021-02-09] MEDS ORDERED: ARGATROBAN IV PRN ×4 (13:45→14:00)
[2021-02-09] MEDS: DEXMEDETOMIDINE 400MCG/NS100ML IV SCH (20:27)
[2021-02-10] VITALS (24 sets, daily range): BP systolic 86–156; BP diastolic 41–76
[2021-02-10 00:08] LABS: ABG BASE EXCESS -2.8 mmol/L (-2.0-3.0); ABG HCO3 24.1 mmol/L (21.0-28.0); ABG OXYGEN SATURATION 88.3 % (95.0-99.0); ABG PCO2 50 mmHg (32-45)
[2021-02-10] MEDS ORDERED: FENTANYL 2500MCG+NS 250ML 250 ML IV ONE (00:31)
[2021-02-10] MEDS ORDERED: PROPOFOL 1000 MG/100 ML 100 ML IV ONE (00:31)
[2021-02-10] MEDS: BENZONATATE 100 MG CAPSULE PO SCH (00:36)
[2021-02-10] MEDS: PROPOFOL 1000 MG/100 ML 100 ML IV PRN ×3 (01:37→18:22)
[2021-02-10] MEDS: FENTANYL 2500MCG+NS 250ML IV.SOLN IV SCH (01:39)
[2021-02-10 03:27] LABS: ABG HCO3 23.6 mmol/L (21.0-28.0); ABG OXYGEN SATURATION 93.6 % (95.0-99.0); ABG PCO2 49 mmHg (32-45)
[2021-02-10 03:50] LABS: BASOPHILS % (AUTO) 0.2 % (0.0-5.0); EOSINOPHILS % (AUTO) 0.1 % (0.0-8.0); HEMATOCRIT 34.2 % (36-48); MEAN CORPUSCULAR HEMOGLOBIN 32.4 pg (27.0-33.0); MEAN CORPUSCULAR HGB CONC 33.3 g/dL (32.0-36.0); MEAN CORPUSCULAR VOLUME 97.2 fL (79-99); MONOCYTES % (AUTO) 1.2 % (3.0-13.0); NEUTROPHILS % (AUTO) 97.1 % (40.0-77.0); PLATELET COUNT (AUTO) 68 K/uL (130-400); RED BLOOD CELL COUNT(AUTO) 3.52 MIL/uL (4.00-5.50); RED CELL DISTRIBUTION WIDTH 15.7 % (11.0-15.5); WHITE BLOOD COUNT (AUTO) 11.3 K/uL (4.8-10.8)
[2021-02-10 04:19] LABS: ALBUMIN 2.6 g/dL (3.5-5.0); BILIRUBIN,TOTAL 0.8 mg/dL (0.2-1.0); CREATININE 0.5 mg/dL (0.5-1.5); POTASSIUM 4.4 mmol/L (3.5-5.1); TOTAL PROTEIN, SERUM 5.4 g/dL (6.0-8.3)
[2021-02-10] MEDS: CLINIMIX-E4.25%AA/D5+LYT2000ML 2,000 ML IV NR (05:52)
[2021-02-10] MEDS: PANTOPRAZOLE 40 MG TAB DR PO SCH (07:39)
[2021-02-10] MEDS ORDERED: PANTOPRAZOLE 40 MG/VIAL IVP SCH (08:00)
[2021-02-10] MEDS ORDERED: PHARMACY COMMUNICATION MISC SCH ×2 (08:00→12:30)
[2021-02-10] MEDS ORDERED: PANTOPRAZOLE 40 MG/VIAL ONE (08:20)
[2021-02-10] MEDS: ARTIFICIAL TEARS 3.5 GM OINTMENT OS SCH ×2 (09:00→22:04)
[2021-02-10] MEDS: ZINC OXIDE OINT 60GM TUBE TP SCH ×2 (09:00→21:00)
[2021-02-10] MEDS: SENNOSIDES 8.6 MG TABLET PO SCH (09:00)
[2021-02-10] MEDS: DOXYCYCLINE 100MG+NS 250ML 250 ML IV SCH ×2 (09:17→22:13)
[2021-02-10] MEDS: POLYETHYLENE GLYCOL 3350 17 GM POWD.PACK PO SCH (09:18)
[2021-02-10] MEDS: THIAMINE HCL 100 MG TABLET PO SCH ×2 (09:19→22:13)
[2021-02-10] MEDS: SOLU-MEDROL 40MG VIAL IVP SCH ×2 (09:20→22:13)
[2021-02-10] MEDS: FUROSEMIDE 20MG VIAL IV SCH ×2 (09:23→22:13)
[2021-02-10] MEDS: NOREPINEPHRIN 4MG/NS 250ML 250 ML IV SCH (20:14)
[2021-02-10] MEDS: LIOTHYRONINE 5 MCG NG SCH (22:16)
[2021-02-11] VITALS (22 sets, daily range): BP systolic 96–130; BP diastolic 47–66
[2021-02-11] MEDS: PROPOFOL 1000 MG/100 ML 100 ML IV PRN ×3 (00:39→18:48)
[2021-02-11 03:57] LABS: ABG BASE EXCESS 0.8 mmol/L (-2.0-3.0); ABG HCO3 26.4 mmol/L (21.0-28.0); ABG OXYGEN SATURATION 92.4 % (95.0-99.0); ABG PCO2 46 mmHg (32-45)
[2021-02-11 06:49] LABS: ALBUMIN 2.6 g/dL (3.5-5.0); BILIRUBIN,TOTAL 0.7 mg/dL (0.2-1.0); CREATININE 0.4 mg/dL (0.5-1.5); POTASSIUM 4.3 mmol/L (3.5-5.1); TOTAL PROTEIN, SERUM 5.1 g/dL (6.0-8.3)
[2021-02-11 07:20] LABS: BASOPHILS % (AUTO) 0.1 % (0.0-5.0); HEMATOCRIT 34.1 % (36-48); LYMPHOCYTES % (AUTO) 1.1 % (21.0-51.0); MEAN CORPUSCULAR HEMOGLOBIN 32.5 pg (27.0-33.0); MEAN CORPUSCULAR HGB CONC 33.1 g/dL (32.0-36.0); NEUTROPHILS % (AUTO) 97.3 % (40.0-77.0); PLATELET COUNT (AUTO) 73 K/uL (130-400); RED BLOOD CELL COUNT(AUTO) 3.48 MIL/uL (4.00-5.50); RED CELL DISTRIBUTION WIDTH 15.9 % (11.0-15.5); WHITE BLOOD COUNT (AUTO) 11.1 K/uL (4.8-10.8)
[2021-02-11] MEDS: SOLU-MEDROL 40MG VIAL IVP SCH ×2 (09:02→20:34)
[2021-02-11] MEDS: LEVOTHYROXINE 25 MCG TABLET PO SCH (09:02)
[2021-02-11] MEDS: FUROSEMIDE 20MG VIAL IV SCH ×2 (09:02→20:34)
[2021-02-11] MEDS: POLYETHYLENE GLYCOL 3350 17 GM POWD.PACK PO SCH (09:02)
[2021-02-11] MEDS: SENNOSIDES 8.6 MG TABLET PO SCH (09:02)
[2021-02-11] MEDS: ARTIFICIAL TEARS 3.5 GM OINTMENT OS SCH ×2 (09:03→20:28)
[2021-02-11] MEDS: LIOTHYRONINE 5 MCG NG SCH ×2 (09:03→20:28)
[2021-02-11] MEDS: ZINC OXIDE OINT 60GM TUBE TP SCH ×2 (09:03→20:28)
[2021-02-11] MEDS: DOXYCYCLINE 100MG+NS 250ML 250 ML IV SCH ×2 (09:03→20:34)
[2021-02-11] MEDS: THIAMINE HCL 100 MG TABLET PO SCH ×2 (09:03→20:34)
[2021-02-11] MEDS: FENTANYL 2500MCG+NS 250ML IV.SOLN IV SCH (09:52)
[2021-02-12] VITALS (23 sets, daily range): BP systolic 94–141; BP diastolic 41–81
[2021-02-12] MEDS: PROPOFOL 1000 MG/100 ML 100 ML IV PRN ×4 (00:23→18:16)
[2021-02-12 03:41] LABS: ABG BASE EXCESS 3.8 mmol/L (-2.0-3.0); ABG HCO3 29.6 mmol/L (21.0-28.0); ABG OXYGEN SATURATION 91.6 % (95.0-99.0); ABG PCO2 50 mmHg (32-45)
[2021-02-12 04:29] LABS: BASOPHILS % (AUTO) 0.1 % (0.0-5.0); EOSINOPHILS % (AUTO) 0.1 % (0.0-8.0); HEMATOCRIT 31.8 % (36-48); LYMPHOCYTES % (AUTO) 1.7 % (21.0-51.0); MEAN CORPUSCULAR HEMOGLOBIN 32.9 pg (27.0-33.0); MONOCYTES % (AUTO) 1.9 % (3.0-13.0); NEUTROPHILS % (AUTO) 95.6 % (40.0-77.0); PLATELET COUNT (AUTO) 80 K/uL (130-400); RED BLOOD CELL COUNT(AUTO) 3.28 MIL/uL (4.00-5.50); WHITE BLOOD COUNT (AUTO) 10.4 K/uL (4.8-10.8)
[2021-02-12 04:44] LABS: INR 1.23 (0.85-1.15); PROTHROMBIN TIME 13.2 SEC (9.6-11.6)
[2021-02-12 04:45] LABS: PARTIAL THROMBOPLASTIN TIME 29.1 SEC (26.3-35.5)
[2021-02-12 04:57] LABS: ALBUMIN 2.4 g/dL (3.5-5.0); BILIRUBIN,TOTAL 0.6 mg/dL (0.2-1.0); CREATININE 0.4 mg/dL (0.5-1.5); CRP QUANTITATIVE 2.2 mg/L (0.00-9.0); MAGNESIUM 1.7 mg/dL (1.80-2.40); POTASSIUM 3.6 mmol/L (3.5-5.1); TOTAL PROTEIN, SERUM 5.4 g/dL (6.0-8.3)
[2021-02-12] MEDS: POTASSIUM CHLORIDE 10% ELIXIR 20 MEQ/15 ML UDCUP PO PRN (05:51)
[2021-02-12] MEDS: MAGNESIUM 2GM PREMIX 50ML 50 ML IV PRN (05:52)
[2021-02-12] MEDS: SOLU-MEDROL 40MG VIAL IVP SCH ×2 (09:30→20:10)
[2021-02-12] MEDS: FUROSEMIDE 20MG VIAL IV SCH ×2 (09:32→20:10)
[2021-02-12] MEDS: SENNOSIDES 8.6 MG TABLET PO SCH (09:32)
[2021-02-12] MEDS: DOXYCYCLINE 100MG+NS 250ML 250 ML IV SCH ×2 (09:32→20:10)
[2021-02-12] MEDS: POLYETHYLENE GLYCOL 3350 17 GM POWD.PACK PO SCH (09:32)
[2021-02-12] MEDS: THIAMINE HCL 100 MG TABLET PO SCH ×2 (09:33→20:12)
[2021-02-12] MEDS: KCL 20 MEQ ERTAB PO PRN (09:34)
[2021-02-12] MEDS: ZINC OXIDE OINT 60GM TUBE TP SCH ×2 (09:34→20:12)
[2021-02-12] MEDS: ARTIFICIAL TEARS 3.5 GM OINTMENT OS SCH ×2 (09:34→20:10)
[2021-02-12] MEDS: LIOTHYRONINE 5 MCG NG SCH ×2 (09:34→20:10)
[2021-02-12] MEDS: FENTANYL 2500MCG+NS 250ML IV.SOLN IV SCH (12:08)
[2021-02-12] MEDS: NOREPINEPHRIN 4MG/NS 250ML 250 ML IV SCH (18:17)
[2021-02-12] MEDS ORDERED: PHARMACY COMMUNICATION MISC SCH (18:30)
[2021-02-12] MEDS: FONDAPARINUX SODIUM 2.5 MG/0.5 ML SQ SCH (20:12)
[2021-02-13] VITALS (24 sets, daily range): BP systolic 102–139; BP diastolic 47–70
[2021-02-13] MEDS: PROPOFOL 1000 MG/100 ML 100 ML IV PRN ×4 (02:04→21:20)
[2021-02-13 06:31] LABS: BASOPHILS % (AUTO) 0.2 % (0.0-5.0); EOSINOPHILS % (AUTO) 0.2 % (0.0-8.0); HEMATOCRIT 32.4 % (36-48); LYMPHOCYTES % (AUTO) 3.2 % (21.0-51.0); MEAN CORPUSCULAR HEMOGLOBIN 32.5 pg (27.0-33.0); MEAN CORPUSCULAR HGB CONC 33.3 g/dL (32.0-36.0); MEAN CORPUSCULAR VOLUME 97.6 fL (79-99); MONOCYTES % (AUTO) 2.5 % (3.0-13.0); NEUTROPHILS % (AUTO) 93.1 % (40.0-77.0); PLATELET COUNT (AUTO) 92 K/uL (130-400); RED BLOOD CELL COUNT(AUTO) 3.32 MIL/uL (4.00-5.50); RED CELL DISTRIBUTION WIDTH 16.5 % (11.0-15.5); WHITE BLOOD COUNT (AUTO) 6.3 K/uL (4.8-10.8)
[2021-02-13 06:45] LABS: ALBUMIN 2.4 g/dL (3.5-5.0); BILIRUBIN,TOTAL 0.6 mg/dL (0.2-1.0); CREATININE 0.4 mg/dL (0.5-1.5); POTASSIUM 3.5 mmol/L (3.5-5.1); TOTAL PROTEIN, SERUM 5.1 g/dL (6.0-8.3)
[2021-02-13 07:05] LABS: ABG BASE EXCESS 7.7 mmol/L (-2.0-3.0); ABG HCO3 33.7 mmol/L (21.0-28.0); ABG OXYGEN SATURATION 92.8 % (95.0-99.0); ABG PCO2 54 mmHg (32-45)
[2021-02-13] MEDS: DOXYCYCLINE 100MG+NS 250ML 250 ML IV SCH ×2 (08:08→21:18)
[2021-02-13] MEDS: FUROSEMIDE 20MG VIAL IV SCH ×2 (08:08→21:18)
[2021-02-13] MEDS: SOLU-MEDROL 40MG VIAL IVP SCH ×2 (08:08→21:18)
[2021-02-13] MEDS: LIOTHYRONINE 5 MCG NG SCH ×2 (08:09→21:18)
[2021-02-13] MEDS: LEVOTHYROXINE 25 MCG TABLET PO SCH (08:09)
[2021-02-13] MEDS: ARTIFICIAL TEARS 3.5 GM OINTMENT OS SCH ×2 (08:09→21:18)
[2021-02-13] MEDS: THIAMINE HCL 100 MG TABLET PO SCH ×2 (08:09→21:18)
[2021-02-13] MEDS: POLYETHYLENE GLYCOL 3350 17 GM POWD.PACK PO SCH (08:09)
[2021-02-13] MEDS: SENNOSIDES 8.6 MG TABLET PO SCH (08:09)
[2021-02-13] MEDS: ZINC OXIDE OINT 60GM TUBE TP SCH ×2 (08:10→21:19)
[2021-02-13] MEDS: FENTANYL 2500MCG+NS 250ML IV.SOLN IV SCH (08:51)
[2021-02-13] MEDS: POTASSIUM CHLORIDE 10% ELIXIR 20 MEQ/15 ML UDCUP PO PRN (11:05)
[2021-02-13] MEDS: DOCUSATE NA 100MG/10ML UDCUP PO SCH ×2 (11:05→21:18)
[2021-02-13] MEDS: FONDAPARINUX SODIUM 2.5 MG/0.5 ML SQ SCH (21:18)
[2021-02-14] VITALS (58 sets, daily range): BP systolic 55–146; BP diastolic 29–62
[2021-02-14] MEDS: PROPOFOL 1000 MG/100 ML 100 ML IV PRN ×4 (04:11→19:18)
[2021-02-14] MEDS: FENTANYL 2500MCG+NS 250ML IV.SOLN IV SCH ×2 (04:12→19:19)
[2021-02-14] MEDS: NOREPINEPHRIN 4MG/NS 250ML 250 ML IV SCH (06:20)
[2021-02-14 06:26] LABS: BASOPHILS % (AUTO) 0.2 % (0.0-5.0); EOSINOPHILS % (AUTO) 0.4 % (0.0-8.0); HEMATOCRIT 32.5 % (36-48); LYMPHOCYTES % (AUTO) 4.3 % (21.0-51.0); MEAN CORPUSCULAR HEMOGLOBIN 32.8 pg (27.0-33.0); MEAN CORPUSCULAR HGB CONC 32.6 g/dL (32.0-36.0); MEAN CORPUSCULAR VOLUME 100.6 fL (79-99); MONOCYTES % (AUTO) 3.2 % (3.0-13.0); PLATELET COUNT (AUTO) 95 K/uL (130-400); RED BLOOD CELL COUNT(AUTO) 3.23 MIL/uL (4.00-5.50); RED CELL DISTRIBUTION WIDTH 16.8 % (11.0-15.5); WHITE BLOOD COUNT (AUTO) 4.6 K/uL (4.8-10.8)
[2021-02-14 06:46] LABS: ALBUMIN 2.2 g/dL (3.5-5.0); BILIRUBIN,TOTAL 0.5 mg/dL (0.2-1.0); CREATININE 0.4 mg/dL (0.5-1.5); POTASSIUM 3.4 mmol/L (3.5-5.1)
[2021-02-14 08:39] LABS: ABG BASE EXCESS 9.7 mmol/L (-2.0-3.0); ABG HCO3 34.9 mmol/L (21.0-28.0); ABG OXYGEN SATURATION 90.4 % (95.0-99.0); ABG PCO2 50 mmHg (32-45)
[2021-02-14] MEDS: DOCUSATE NA 100MG/10ML UDCUP PO SCH ×2 (08:51→21:00)
[2021-02-14] MEDS: THIAMINE HCL 100 MG TABLET PO SCH ×2 (08:51→22:17)
[2021-02-14] MEDS: POLYETHYLENE GLYCOL 3350 17 GM POWD.PACK PO SCH (08:51)
[2021-02-14] MEDS: DOXYCYCLINE 100MG+NS 250ML 250 ML IV SCH ×2 (08:51→22:17)
[2021-02-14] MEDS: SENNOSIDES 8.6 MG TABLET PO SCH (08:51)
[2021-02-14] MEDS: ZINC OXIDE OINT 60GM TUBE TP SCH ×2 (08:52→22:18)
[2021-02-14] MEDS: SOLU-MEDROL 40MG VIAL IVP SCH ×2 (08:52→22:17)
[2021-02-14] MEDS: FUROSEMIDE 20MG VIAL IV SCH (08:52)
[2021-02-14] MEDS: ARTIFICIAL TEARS 3.5 GM OINTMENT OS SCH ×2 (08:52→22:18)
[2021-02-14] MEDS: LIOTHYRONINE 5 MCG NG SCH ×2 (08:52→22:18)
[2021-02-14] MEDS: POTASSIUM CHLORIDE 20MEQ/100ML 100 ML IV PRN ×2 (09:02→13:12)
[2021-02-14] MEDS: LACTULOSE 20 GM/30 ML UDCUP PO SCH (13:12)
[2021-02-14] MEDS: VECURONIUM 10MG/10ML IV PRN ×2 (16:49→18:20)
[2021-02-14] MEDS ORDERED: CISATRACURIUM BESYLATE 100 MG in 0.9%NACL 100ML 100 ML IV SCH (18:30)
[2021-02-14] MEDS ORDERED: VECURONIUM 10MG/10ML IV PRN (18:30)
[2021-02-14] MEDS ORDERED: PHENYLEPHRINE HCL 100 MG in 0.9% NACL 250ML 250 ML IV SCH (18:30)
[2021-02-14] MEDS ORDERED: VECURONIUM 10MG/10ML IV SCH (18:45)
[2021-02-14] MEDS ORDERED: 0.9% NACL 500ML IV.SOLN 500 ML IV ONE ×2 (19:46→20:45)
[2021-02-14] MEDS ORDERED: VASOPRESSIN 40 UNITS in 0.9%NACL 50ML 40 ML IV SCH (20:00)
[2021-02-14] MEDS: FONDAPARINUX SODIUM 2.5 MG/0.5 ML SQ SCH (22:18)
[2021-02-15] VITALS (41 sets, daily range): BP systolic 63–117; BP diastolic 35–57
[2021-02-15] MEDS: PROPOFOL 1000 MG/100 ML 100 ML IV PRN ×3 (00:17→08:07)
[2021-02-15] MEDS ORDERED: LIDOCAINE HCL 1% 20 ML VIAL ONE ×2 (00:47→00:55)
[2021-02-15] MEDS: NOREPINEPHRIN 4MG/NS 250ML 250 ML IV SCH ×2 (02:56→08:04)
[2021-02-15] MEDS ORDERED: FENTANYL 2500MCG+NS 250ML 250 ML IV ONE (03:41)
[2021-02-15 03:58] LABS: ABG BASE EXCESS -3.5 mmol/L (-2.0-3.0); ABG HCO3 23.8 mmol/L (21.0-28.0); ABG OXYGEN SATURATION 85.1 % (95.0-99.0); ABG PCO2 53 mmHg (32-45)
[2021-02-15] MEDS ORDERED: 0.9% NACL 500ML IV.SOLN 500 ML IV SCH (05:00)
[2021-02-15] MEDS: POTASSIUM CHLORIDE 20MEQ/100ML 100 ML IV PRN (08:07)
[2021-02-15] MEDS: SENNOSIDES 8.6 MG TABLET PO SCH (08:11)
[2021-02-15] MEDS: POLYETHYLENE GLYCOL 3350 17 GM POWD.PACK PO SCH (08:11)
[2021-02-15] MEDS: DOCUSATE NA 100MG/10ML UDCUP PO SCH (08:12)
[2021-02-15] MEDS: SOLU-MEDROL 40MG VIAL IVP SCH (08:36)
[2021-02-15] MEDS: DOXYCYCLINE 100MG+NS 250ML 250 ML IV SCH (08:36)
[2021-02-15] MEDS: ZINC OXIDE OINT 60GM TUBE TP SCH (08:37)
[2021-02-15] MEDS: THIAMINE HCL 100 MG TABLET PO SCH (08:37)
[2021-02-15] MEDS: LACTULOSE 20 GM/30 ML UDCUP PO SCH (08:37)
[2021-02-15] MEDS: ARTIFICIAL TEARS 3.5 GM OINTMENT OS SCH (08:37)
[2021-02-15 08:56] LABS: BASOPHILS % (AUTO) 1.2 % (0.0-5.0); HEMATOCRIT 30.3 % (36-48); LYMPHOCYTES % (AUTO) 5.3 % (21.0-51.0); MEAN CORPUSCULAR HEMOGLOBIN 33.2 pg (27.0-33.0); MEAN CORPUSCULAR VOLUME 103.8 fL (79-99); MONOCYTES % (AUTO) 1.9 % (3.0-13.0); NEUTROPHILS % (AUTO) 90.4 % (40.0-77.0); NUCLEATED RED BLOOD CELLS 4.4 % (0.0-0.19); PLATELET COUNT (AUTO) 90 K/uL (130-400); RED BLOOD CELL COUNT(AUTO) 2.92 MIL/uL (4.00-5.50); RED CELL DISTRIBUTION WIDTH 17.2 % (11.0-15.5); WHITE BLOOD COUNT (AUTO) 4.1 K/uL (4.8-10.8)
[2021-02-15 09:12] LABS: ALBUMIN 1.6 g/dL (3.5-5.0); BILIRUBIN,TOTAL 0.8 mg/dL (0.2-1.0); CREATININE 0.7 mg/dL (0.5-1.5); MAGNESIUM 1.7 mg/dL (1.80-2.40); POTASSIUM 3.7 mmol/L (3.5-5.1); TOTAL PROTEIN, SERUM 4.2 g/dL (6.0-8.3)
[2021-02-15 10:06] LABS: ABG BASE EXCESS -0.9 mmol/L (-2.0-3.0); ABG HCO3 25.4 mmol/L (21.0-28.0); ABG OXYGEN SATURATION 83.4 % (95.0-99.0); ABG PCO2 49 mmHg (32-45)
[2021-02-15] MEDS: MAGNESIUM 2GM PREMIX 50ML 50 ML IV PRN (10:34)
[2021-02-15] MEDS: LEVOTHYROXINE 25 MCG TABLET PO SCH (10:36)
== END 2021-02-15 11:41 | DRG 870 ==
LOC: EDH 16:28 → EDHIP 19:28 → 2AH 23:11 → 2BH 02-12 21:55
PROVIDERS: ADMIT Internal Medicine; ATTEND Internal Medicine
PROC: XW033E5 Introduction of Remdesivir Anti-infective into Peripheral Vein, Percutaneous Approach, New Technology Group 5 (ICD-10-PCS; 2021-01-17)
PROC: XW033H5 Introduction of Tocilizumab into Peripheral Vein, Percutaneous Approach, New Technology Group 5 (ICD-10-PCS; 2021-01-18)
PROC: 5A0935A Assistance with Respiratory Ventilation, Less than 24 Consecutive Hours, High Flow/Velocity Cannula (ICD-10-PCS; 2021-01-20)
PROC: 5A0935A Assistance with Respiratory Ventilation, Less than 24 Consecutive Hours, High Flow/Velocity Cannula (ICD-10-PCS; 2021-01-21)
PROC: 5A0935A Assistance with Respiratory Ventilation, Less than 24 Consecutive Hours, High Flow/Velocity Cannula (ICD-10-PCS; 2021-01-22)
PROC: 5A0935A Assistance with Respiratory Ventilation, Less than 24 Consecutive Hours, High Flow/Velocity Cannula (ICD-10-PCS; 2021-01-23)
PROC: 02HV33Z Insertion of Infusion Device into Superior Vena Cava, Percutaneous Approach (ICD-10-PCS; 2021-01-27)
PROC: 5A0935A Assistance with Respiratory Ventilation, Less than 24 Consecutive Hours, High Flow/Velocity Cannula (ICD-10-PCS; 2021-01-30)
PROC: 5A0935A Assistance with Respiratory Ventilation, Less than 24 Consecutive Hours, High Flow/Velocity Cannula (ICD-10-PCS; 2021-01-31)
PROC: 5A1955Z Respiratory Ventilation, Greater than 96 Consecutive Hours (ICD-10-PCS; 2021-02-10)
PROC: 0BH17EZ Insertion of Endotracheal Airway into Trachea, Via Natural or Artificial Opening (ICD-10-PCS; 2021-02-10)
PROC: 5A09357 Assistance with Respiratory Ventilation, Less than 24 Consecutive Hours, Continuous Positive Airway Pressure (ICD-10-PCS; 2021-02-10)
PROC: 0W9930Z Drainage of Right Pleural Cavity with Drainage Device, Percutaneous Approach (ICD-10-PCS; principal; 2021-02-12)
PROC: 0W9930Z Drainage of Right Pleural Cavity with Drainage Device, Percutaneous Approach (ICD-10-PCS; 2021-02-15)
DX: A41.89 Other specified sepsis (principal); U07.1 COVID-19; J12.82 Pneumonia due to coronavirus disease 2019; J80 Acute respiratory distress syndrome; J15.9 Unspecified bacterial pneumonia; J98.11 Atelectasis; D84.9 Immunodeficiency, unspecified; G93.49 Other encephalopathy; J93.9 Pneumothorax, unspecified; E44.0 Moderate protein-calorie malnutrition; B49 Unspecified mycosis; Z66 Do not resuscitate; D69.6 Thrombocytopenia, unspecified; K44.9 Diaphragmatic hernia without obstruction or gangrene; I11.9 Hypertensive heart disease without heart failure; E03.9 Hypothyroidism, unspecified; F41.9 Anxiety disorder, unspecified; R19.7 Diarrhea, unspecified; D64.9 Anemia, unspecified; R32 Unspecified urinary incontinence; Z68.26 Body mass index [BMI] 26.0-26.9, adult
CPT/HCPCS: 31500; 36415; 36600; 71045; 71275; 74018; 80048; 80053; 80202; 81001; 82180; 82435; 82550; 82803; 82947; 82948; 83036; 83605; 83615; 83735; 83874; 83880; 84100; 84132; 84145; 84260; 84295; 84443; 84478; 84484; 84630; 85018; 85025; 85027; 85378; 85384; 85610; 85730; 86022; 86140; 86606; 87040; 87071; 87088; 87205; 87635; 87804; 93005; 93970; 94002; 94003; 94760; A4344; C1751; C1894; C9113; C9803; G0378; J0456; J0696; J0883; J1100; J1450; J1650; J1652; J1815; J1940; J2370; J2543; J2704; J2920; J2930; J3010; J3370; J3475; J3480; J3490; J7040; J7050; Q0167; Q9967